=== PATIENT | male | born 1950 | race Caucasian/White ===

== ENCOUNTER → 2023-03-22 15:03 | Outpatient (BNVA) | payer MEDICARE, MEDICAID, SELFPAY | PROVIDERS: PCP Internal Medicine; Visit Provider Psychiatry & Neurology Neurology | DX: G47.10 Hypersomnia, unspecified (principal); R06.83 Snoring; Z86.73 Personal history of transient ischemic attack (TIA), and cerebral infarction without residual deficits | CPT/HCPCS: 99202 ==

== ENCOUNTER → 2023-04-17 09:00 | Outpatient (REF) | payer MEDICARE, MEDICAID, SELFPAY | LOC: HO.SL 09:00 | PROVIDERS: PCP Internal Medicine; Visit Provider Psychiatry & Neurology Neurology | DX: G47.33 Obstructive sleep apnea (adult) (pediatric) (principal); G47.10 Hypersomnia, unspecified; R06.83 Snoring | CPT/HCPCS: 95806 ==

== ENCOUNTER → 2023-06-22 20:30 | Outpatient (REF) | payer MEDICARE, MEDICAID, SELFPAY | LOC: HO.SL 20:30 | PROVIDERS: PCP Internal Medicine; Visit Provider Nurse Practitioner Family | DX: G47.33 Obstructive sleep apnea (adult) (pediatric) (principal) | CPT/HCPCS: 95811 ==

== ENCOUNTER → 2023-06-23 05:44 | Outpatient (BNV) | payer MEDICARE, MEDICAID, SELFPAY | PROVIDERS: PCP Internal Medicine; Visit Provider Psychiatry & Neurology Neurology | DX: G47.33 Obstructive sleep apnea (adult) (pediatric) (principal) | CPT/HCPCS: 95811 ==

== ENCOUNTER 2023-07-09 09:10 | Outpatient (AMB) | payer MEDICARE, MEDICAID, SELFPAY ==
--- NOTE | 2023-07-09 09:11 | A.OFFVIS_ITS ---
Intake Vital Signs 07/09/23 09:23 Weight 175 lb 4 oz BP 130/62 Blood Pressure Location Lt brachial Pulse 66 Pulse Oximetry (%) 96 Oxygen Delivery Method Room Air Intake Visit Reasons: 3 mo f/u-recent LFT subacute thalamic stroke -Conf Allergies No Known Allergies Allergy (Verified 07/09/23 09:14) Medication List - Last Reconciled 07/09/23 by Dante Tan CNP amlodipine mg PO atorvastatin mg PO empagliflozin (Jardiance) 10 mg PO DAILY ezetimibe 10 mg PO DAILY glipizide mg PO insulin degludec (Tresiba FlexTouch U-100 insulin) units subcut magnesium oxide 400 mg PO DAILY metformin mg PO omeprazole mg PO sildenafil 100 mg PO DAILY PRN PFSH Medical History (Updated 05/09/23 @ 13:54 by Dante Tan CNP) Arterial ischemic stroke, vertebrobasilar, thalamic, remote, resolved Diabetes Erectile dysfunction GERD (gastroesophageal reflux disease) HTN (hypertension) Hypersomnia Pancreatitis Snoring Surgical History Hx of colonoscopy Family History Mother Myocardial infarction Father Diabetes Social History (Updated 07/09/23 @ 09:23 by Jia Blackman CMA) Alcohol intake: never Patient Tobacco Use Status: Never used Tobacco Physical Exam Vital Signs: Last Vital Signs Pulse 66 07/09/23 09:23 BP 130/62 07/09/23 09:23 Pulse Ox 96 07/09/23 09:23 Oxygen Delivery Method Room Air 07/09/23 09:23 Coding Level of Care Code Est Pt Level 3 (48698) Diagnoses
--- NOTE | 2023-07-09 09:11 | A.OFFVIS_ITS ---
Intake Vital Signs 07/09/23 09:23 Weight 175 lb 4 oz BP 130/62 Blood Pressure Location Lt brachial Pulse 66 Pulse Oximetry (%) 96 Oxygen Delivery Method Room Air Intake Visit Reasons: 3 mo f/u-recent LFT subacute thalamic stroke -Conf Intake Note: Follow up, needs interpenter Food Service Representative Required: Yes Food Service Representative Name: Margaret Prieto Allergies No Known Allergies Allergy (Verified 07/09/23 09:14) Medication List - Last Reconciled 07/09/23 by Dante Tan CNP amlodipine mg PO atorvastatin mg PO empagliflozin (Jardiance) 10 mg PO DAILY ezetimibe 10 mg PO DAILY glipizide mg PO insulin degludec (Tresiba FlexTouch U-100 insulin) units subcut magnesium oxide 400 mg PO DAILY metformin mg PO omeprazole mg PO sildenafil 100 mg PO DAILY PRN HPI HPI Comments History of Present Illness Details 72 y/o male patient with hx of stroke presents for follow up of sleep study. The home sleep study result was significant for severe degree of sleep apnea. The AHI was 30/hr and oxygen yvonne was 79%. Pt underwent titration study. The breathing and oxygenation stabilized on CPAP at 9cmH2O. Pt continues to endorse frequent gasping arousals, and non refreshing sleep. He is on aspirin 81mg qd and atorvostatin 80mg qd. [facility] Medical History (Updated 05/09/23 @ 13:54 by Dante Tan CNP) Arterial ischemic stroke, vertebrobasilar, thalamic, remote, resolved Diabetes Erectile dysfunction GERD (gastroesophageal reflux disease) HTN (hypertension) Hypersomnia Pancreatitis Snoring Surgical History Hx of colonoscopy Family History Mother Myocardial infarction Father Diabetes Social History (Updated 07/09/23 @ 09:23 by Jia Blackman CMA) Alcohol intake: never Patient Tobacco Use Status: Never used Tobacco Review of Systems Const All systems reviewed & are unremarkable except as noted in HPI and below Physical Exam Vital Signs: Last Vital Signs Pulse 66 07/09/23 09:23 BP 130/62 07/09/23 09:23 Pulse Ox 96 07/09/23 09:23 Oxygen Delivery Method Room Air 07/09/23 09:23 Const General: cooperative, healthy appearing, comfortable and no acute distress Nutritional Appearance: average body habitus Orientation/consciousness: patient oriented x3 HEENT Head: Yes normal to inspection Eyes Pupils: Equal, round and reactive pupils present Neuro Other: hearing loss, uses hearing aid on right. General: patient oriented x3, gait normal, tone normal, moves all extremities and no focal motor deficits Cranial nerves: Yes Facial sensation intact/muscles of mastication intact, Yes Equal, round and reactive pupils present, Yes Bilaterally intact EOM present, Yes Nystagmus not present, Yes Normal facial strength present, Yes Midline tongue present and Yes Symmetric palate elevation present Cognition (Neuro): normal cognition Gait exam (Neuro): Other gait observations present (mild off balance) Motor exam (neuro): 5/5 motor strength present throughout and Normal motor muscle tone present throughout Deep tendon reflexes (DTR's): Right triceps reflex intensity grade: 1+, Left triceps reflex intensity grade: 1+, Rt Biceps (C5, C6): 1+, Left biceps reflex intensity grade: 1+, Right brachioradialis reflex intensity grade: 1+, Left brachioradialis reflex intensity grade: 1+, Right patellar reflex intensity grade: 1+, Left patellar reflex intensity grade: 1+ and Right ankle reflex intensity grade: 1+ Coordination: [id number] test normal Psych Appearance: grossly normal Mental Status: mental status grossly normal Affect: normal affect Attitude: cooperative Assessment & Plan Assessment & Plan (1) Arterial ischemic stroke, vertebrobasilar, thalamic, remote, resolved: Code(s): Z86.73 - Personal history of transient ischemic attack (TIA), and cerebral infarction without residual deficits (2) ANTHONY (obstructive sleep apnea): Comment: Severe degree of sleep apnea. The AHI was 30/hr and oxygen yvonne was 79% Code(s): G47.33 - Obstructive sleep apnea (adult) (pediatric) Plan Continue Aspirin 81mg qd and Atorvastatin 80mg qd. Start CPAP at 9cmH2O to treat sleep apnea. Stressed compliance, use CPAP nightly and more than 4 hours. Coding Level of Care Code Est Pt Level 3 (44106) Diagnoses Arterial ischemic stroke, vertebrobasilar, thalamic, remote, resolved Z86.73 ANTHONY (obstructive sleep apnea) G47.33
[2023-07-09 09:23] VITALS: BP 130/62; PULSE 66; O2SAT 96
== END 2023-07-09 09:47 | disposition home or self-care (01) ==
PROVIDERS: Visit Provider Nurse Practitioner Family
DX: G47.33 Obstructive sleep apnea (adult) (pediatric) (principal); Z86.73 Personal history of transient ischemic attack (TIA), and cerebral infarction without residual deficits
CPT/HCPCS: 99213

== ENCOUNTER → 2023-07-09 09:10 | Outpatient (BNVA) | payer MEDICARE, MEDICAID, SELFPAY | PROVIDERS: Visit Provider Nurse Practitioner Family | DX: G47.33 Obstructive sleep apnea (adult) (pediatric) (principal); G47.10 Hypersomnia, unspecified; R06.83 Snoring; Z86.73 Personal history of transient ischemic attack (TIA), and cerebral infarction without residual deficits | CPT/HCPCS: 99212 ==

== ENCOUNTER 2023-11-05 08:54 | Outpatient (AMB) | payer MEDICARE, MEDICAID, SELFPAY ==
--- NOTE | 2023-11-05 09:00 | MHC.OFFVIS ---
Intake Vital Signs 11/05/23 09:02 Height 5 ft 9 in Weight 180 lb BMI 26.6 BP 150/70 H Blood Pressure Location Rt brachial Position Sitting Intake Visit Reasons: 4 mo f/u-Subacute Thalamic Stroke-Confirmed Intake Note: Patient presents for 4 month follow up. Allergies No Known Allergies Allergy (Verified 11/05/23 09:04) HPI HPI Comments History of Present Illness Details 73 y/o male patient with hx of stroke presents for follow up of sleep study. The home sleep study result was significant for severe degree of sleep apnea. The AHI was 30/hr and oxygen yvonne was 79%. Pt underwent titration study. The breathing and oxygenation stabilized on CPAP at 9cmH2O. CPAP at 9cmH2O ordered in June, however patient did not received his CPAP. He statest that he did not get phone call from [facility]. Pt continues to endorse frequent gasping arousals, and non refreshing sleep. He is on aspirin 81mg qd and atorvostatin 80mg qd. [facility] Medical History (Updated 05/09/23 @ 13:54 by Dante Tan CNP) Hypersomnia Snoring Erectile dysfunction Pancreatitis GERD (gastroesophageal reflux disease) HTN (hypertension) Diabetes Arterial ischemic stroke, vertebrobasilar, thalamic, remote, resolved Surgical History Hx of colonoscopy Family History Mother Myocardial infarction Father Diabetes Social History Alcohol intake: never Patient Tobacco Use Status: Never used Tobacco Review of Systems Const All systems reviewed & are unremarkable except as noted in HPI and below Physical Exam Vital Signs: Last Vital Signs BP 150/70 H 11/05/23 09:02 BMI result Body Mass Index 26.6 Const General: cooperative, healthy appearing, comfortable and no acute distress Nutritional Appearance: average body habitus Orientation/consciousness: patient oriented x3 HEENT Head: Yes normal to inspection Eyes Pupils: Equal, round and reactive pupils present Neuro Other: hearing loss, uses hearing aid on right. General: patient oriented x3, gait normal, tone normal, moves all extremities and no focal motor deficits Cranial nerves: Yes Facial sensation intact/muscles of mastication intact, Yes Equal, round and reactive pupils present, Yes Bilaterally intact EOM present, Yes Nystagmus not present, Yes Normal facial strength present, Yes Midline tongue present and Yes Symmetric palate elevation present Cognition (Neuro): normal cognition Gait exam (Neuro): Other gait observations present (mild off balance) Motor exam (neuro): 5/5 motor strength present throughout and Normal motor muscle tone present throughout Deep tendon reflexes (DTR's): Right triceps reflex intensity grade: 1+, Left triceps reflex intensity grade: 1+, Rt Biceps (C5, C6): 1+, Left biceps reflex intensity grade: 1+, Right brachioradialis reflex intensity grade: 1+, Left brachioradialis reflex intensity grade: 1+, Right patellar reflex intensity grade: 1+, Left patellar reflex intensity grade: 1+ and Right ankle reflex intensity grade: 1+ Coordination: [id number] test normal Psych Appearance: grossly normal Mental Status: mental status grossly normal Affect: normal affect Attitude: cooperative Assessment & Plan Assessment & Plan (1) ANTHONY (obstructive sleep apnea): Comment: Severe degree of sleep apnea. The AHI was 30/hr and oxygen yvonne was 79% Code(s): G47.33 - Obstructive sleep apnea (adult) (pediatric) (2) Hypersomnia: Code(s): G47.10 - Hypersomnia, unspecified Plan Resent the CPAP prescription to [facility]. [facility] information given to patient. Start CPAP at 9cmH2O. Stressed compliance and therapy response. Coding Level of Care Code Est Pt Level 3 (08953) Diagnoses ANTHONY (obstructive sleep apnea) G47.33 Hypersomnia G47.10
[2023-11-05 09:02] VITALS: BP 150/70; BMI 26.6
== END 2023-11-05 09:20 | disposition home or self-care (01) ==
PROVIDERS: PCP Internal Medicine; Visit Provider Nurse Practitioner Family
DX: G47.33 Obstructive sleep apnea (adult) (pediatric) (principal); G47.10 Hypersomnia, unspecified
CPT/HCPCS: 99213

== ENCOUNTER → 2023-11-05 08:54 | Outpatient (BNVA) | payer MEDICARE, MEDICAID, SELFPAY | PROVIDERS: PCP Internal Medicine; Visit Provider Nurse Practitioner Family | DX: G47.33 Obstructive sleep apnea (adult) (pediatric) (principal); G47.10 Hypersomnia, unspecified | CPT/HCPCS: 99212 ==

== ENCOUNTER 2024-07-17 13:28 | Outpatient (AMB) | payer MEDICARE, MEDICAID, SELFPAY ==
--- NOTE | 2024-07-17 13:50 | A.OFFVIS_ITS ---
Vital Signs 07/17/24 13:51 Height 5 ft 9 in Weight 181 lb 6 oz BMI 26.8 BP 138/62 Blood Pressure Location Rt brachial Position Sitting Respiration 16 Pulse 85 Pulse Source Pulse Oximeter Pulse Oximetry (%) 96 Oxygen Delivery Method Room Air Intake Visit Reasons: 4 mo f/u - Subacute Thalamic Stroke Intake Note: Pt presents to the office for a 4 month follow up for subacaute thalamic stroke and ANTHONY. Ict Help Desk Technician Required: No Allergies No Known Allergies Allergy (Verified 07/17/24 13:51) HPI Comments Details: 73 y/o male patient with hx of stroke presents for follow up of sleep study. The home sleep study result was significant for severe degree of sleep apnea. The AHI was 30/hr and oxygen yvonne was 79%. Pt underwent titration study. The breathing and oxygenation stabilized on CPAP at 9cmH2O. He is unable to use - says he had dryness in his nose His compliance 01/2024-03/2024 57% Pt continues to endorse frequent gasping arousals, and non refreshing sleep. He is on aspirin 81mg qd and atorvostatin 80mg qd. [facility] Medical History Hypersomnia Snoring Erectile dysfunction Pancreatitis GERD (gastroesophageal reflux disease) HTN (hypertension) Diabetes Arterial ischemic stroke, vertebrobasilar, thalamic, remote, resolved Surgical History Hx of colonoscopy Family History Mother Myocardial infarction Father Diabetes Social History Alcohol intake: never Patient Tobacco Use Status: Never used Tobacco Physical Exam Vital Signs: Last Vital Signs Pulse 85 07/17/24 13:51 Resp 16 07/17/24 13:51 BP 138/62 07/17/24 13:51 Pulse Ox 96 07/17/24 13:51 Oxygen Delivery Method Room Air 07/17/24 13:51 BMI result Body Mass Index 26.8 Const General: cooperative, healthy appearing, comfortable and no acute distress Nutritional Appearance: average body habitus Orientation/consciousness: patient oriented x3 HEENT Head: Yes normal to inspection Eyes Pupils: Equal, round and reactive pupils present Neuro Other: hearing loss, uses hearing aid on right. General: patient oriented x3, gait normal, tone normal, moves all extremities and no focal motor deficits Cranial nerves: Yes Facial sensation intact/muscles of mastication intact, Yes Equal, round and reactive pupils present, Yes Bilaterally intact EOM present, Yes Nystagmus not present, Yes Normal facial strength present, Yes Midline tongue present and Yes Symmetric palate elevation present Cognition (Neuro): normal cognition Gait exam (Neuro): Other gait observations present (mild off balance) Motor exam (neuro): 5/5 motor strength present throughout and Normal motor muscle tone present throughout Coordination: [id number] test normal Psych Appearance: grossly normal Mental Status: mental status grossly normal Affect: normal affect Attitude: cooperative Assessment & Plan Assessment & Plan (1) ANTHONY (obstructive sleep apnea): Comment: Severe degree of sleep apnea. The AHI was 30/hr and oxygen yvonne was 79% Code(s): G47.33 - Obstructive sleep apnea (adult) (pediatric) Category: Medical (2) Hypersomnia: Code(s): G47.10 - Hypersomnia, unspecified Category: Medical Plan [facility] information given to patient to call for amks fitting CPAP at 9cmH2O. Stressed compliance. Coding Level of Care Code Est Pt Level 4 (55342) Diagnoses ANTHONY (obstructive sleep apnea) G47.33 Hypersomnia G47.10
[2024-07-17 13:51] VITALS: BP 138/62; PULSE 85; RESP 16; O2SAT 96; BMI 26.8
== END 2024-07-17 14:13 | disposition home or self-care (01) ==
PROVIDERS: Absent Provider Psychiatry & Neurology Neurology; PCP Internal Medicine; Visit Provider Psychiatry & Neurology Neurology
DX: G47.33 Obstructive sleep apnea (adult) (pediatric) (principal); G47.10 Hypersomnia, unspecified
CPT/HCPCS: 99214

== ENCOUNTER → 2024-07-17 13:28 | Outpatient (BNVA) | payer MEDICARE, MEDICAID, SELFPAY | PROVIDERS: Absent Provider Psychiatry & Neurology Neurology; PCP Internal Medicine; Visit Provider Psychiatry & Neurology Neurology | DX: G47.33 Obstructive sleep apnea (adult) (pediatric) (principal); G47.10 Hypersomnia, unspecified | CPT/HCPCS: 99212 ==

== ENCOUNTER 2024-08-04 11:57 | Outpatient (AMB) | payer MEDICARE, MEDICAID, SELFPAY ==
--- NOTE | 2024-08-04 12:06 | A.OFFVIS_ITS ---
Vital Signs 08/04/24 12:07 Height 5 ft 9 in Weight 184 lb BMI 27.2 BP 130/70 Blood Pressure Location Rt brachial Position Sitting Respiration 16 Pulse 77 Pulse Source Pulse Oximeter Pulse Oximetry (%) 94 Oxygen Delivery Method Room Air Intake Visit Reasons: 4m f/u-Sub Thalamic Stroke(sleep Clinic) [place] per MD Intake Note: Pt presents to the office for 1 month follow up for subacute thalamic stroke and ANTHONY. Ballet Dancer Required: No Allergies No Known Allergies Allergy (Verified 08/04/24 12:07) HPI Comments Details: 73 y/o male patient with hx of stroke presents for follow up of sleep study. A certified medical imaging specialist Yessenia Dejesus helped during this evaluation The home sleep study result was significant for severe degree of sleep apnea. The AHI was 30/hr and oxygen yvonne was 79%. Pt underwent titration study. The breathing and oxygenation stabilized on CPAP at 9cmH2O. He is unable to use - says he had dryness in his nose His compliance 01/2024-03/2024 57% He is still not compliant due to discomfort with mask. Pt continues to endorse frequent gasping arousals, and non refreshing sleep. He is on aspirin 81mg qd and atorvostatin 80mg qd. [facility] Medical History Hypersomnia Snoring Erectile dysfunction Pancreatitis GERD (gastroesophageal reflux disease) HTN (hypertension) Diabetes Arterial ischemic stroke, vertebrobasilar, thalamic, remote, resolved Surgical History Hx of colonoscopy Family History Mother Myocardial infarction Father Diabetes Social History Alcohol intake: never Patient Tobacco Use Status: Never used Tobacco Physical Exam Vital Signs: Last Vital Signs Pulse 77 08/04/24 12:07 Resp 16 08/04/24 12:07 BP 130/70 08/04/24 12:07 Pulse Ox 94 08/04/24 12:07 Oxygen Delivery Method Room Air 08/04/24 12:07 BMI result Body Mass Index 27.2 Const General: cooperative, healthy appearing, comfortable and no acute distress Nutritional Appearance: average body habitus Orientation/consciousness: patient oriented x3 HEENT Head: Yes normal to inspection Eyes Pupils: Equal, round and reactive pupils present Neuro Other: hearing loss, uses hearing aid on right. General: patient oriented x3, gait normal, tone normal, moves all extremities and no focal motor deficits Cranial nerves: Yes Facial sensation intact/muscles of mastication intact, Yes Equal, round and reactive pupils present, Yes Bilaterally intact EOM present, Yes Nystagmus not present, Yes Normal facial strength present, Yes Midline tongue present and Yes Symmetric palate elevation present Cognition (Neuro): normal cognition Gait exam (Neuro): Other gait observations present (mild off balance) Motor exam (neuro): 5/5 motor strength present throughout and Normal motor muscle tone present throughout Coordination: [id number] test normal Assessment & Plan Assessment & Plan (1) ANTHONY (obstructive sleep apnea): Comment: Severe degree of sleep apnea. The AHI was 30/hr and oxygen yvonne was 79% Code(s): G47.33 - Obstructive sleep apnea (adult) (pediatric) Category: Medical (2) Hypersomnia: Code(s): G47.10 - Hypersomnia, unspecified Category: Medical Plan Refer to ENT for DISE eval for Inspire . CPAP at 9cmH2O. Stressed compliance. Orders: Referrals Ear/Nose/Throat Referral G47.33 - Obstructive sleep apnea (adult) (pediatric) Coding Level of Care Code Est Pt Level 4 (88336) Diagnoses ANTHONY (obstructive sleep apnea) G47.33 Hypersomnia G47.10
[2024-08-04 12:07] VITALS: BP 130/70; PULSE 77; RESP 16; O2SAT 94; BMI 27.2
== END 2024-08-04 12:52 | disposition home or self-care (01) ==
PROVIDERS: PCP Internal Medicine; Visit Provider Psychiatry & Neurology Neurology
DX: G47.33 Obstructive sleep apnea (adult) (pediatric) (principal); G47.10 Hypersomnia, unspecified
CPT/HCPCS: 99214

== ENCOUNTER → 2024-08-04 11:57 | Outpatient (BNVA) | payer MEDICARE, MEDICAID, SELFPAY | PROVIDERS: PCP Internal Medicine; Visit Provider Psychiatry & Neurology Neurology | DX: G47.33 Obstructive sleep apnea (adult) (pediatric) (principal); G47.10 Hypersomnia, unspecified | CPT/HCPCS: 99212 ==

== ENCOUNTER 2025-03-04 08:38 | Outpatient (AMB) | payer MEDICARE, MEDICAID, SELFPAY ==
--- NOTE | 2025-03-04 08:48 | MHC.OFFVIS ---
Vital Signs 03/04/25 08:49 Height 5 ft 9 in Weight 189 lb BMI 27.9 BP 128/70 Blood Pressure Location Rt brachial Position Sitting Pulse 79 Pulse Source Pulse Oximeter Pulse Oximetry (%) 97 Oxygen Delivery Method Room Air Intake Visit Reasons: 4m f/u-Sub Thalamic Stroke(sleep Clinic) [place] per MD Intake Note: patient presents for follow up ANTHONY sleep study 08/17/24 scanned. ENT has not called him to book as of yet Allergies No Known Allergies Allergy (Verified 03/04/25 08:50) Medication List - Last Reconciled 03/04/25 by Shante Rodriguez MD amlodipine mg PO atorvastatin mg PO cetirizine (Zyrtec) 10 mg PO DAILY empagliflozin (Jardiance) 10 mg PO DAILY ezetimibe 10 mg PO DAILY glipizide mg PO insulin degludec (Tresiba FlexTouch U-100 insulin) units subcut magnesium oxide 400 mg PO DAILY metformin mg PO omeprazole mg PO sildenafil 100 mg PO DAILY PRN HPI Comments Details: 73 y/o male patient with hx of stroke presents for follow up. A certified medical orderly Becka Castaneda helped during this evaluation The home sleep study result was significant for severe degree of sleep apnea. The AHI was 30/hr and oxygen yvonne was 79%. Pt underwent titration study. The breathing and oxygenation stabilized on CPAP at 9cmH2O. He is unable to use - says he had dryness in his nose and i referred him to ENT for DISE evaluation He is still not compliant due to discomfort with mask. Pt continues to endorse frequent gasping arousals, and non refreshing sleep. He is on aspirin 81mg qd and atorvostatin 80mg qd. [facility] Medical History Hypersomnia Snoring Erectile dysfunction Pancreatitis GERD (gastroesophageal reflux disease) HTN (hypertension) Diabetes Arterial ischemic stroke, vertebrobasilar, thalamic, remote, resolved Surgical History Hx of colonoscopy Family History Mother Myocardial infarction Father Diabetes Social History Alcohol intake: never Patient Tobacco Use Status: Never used Tobacco Physical Exam Vital Signs: Last Vital Signs Pulse 79 03/04/25 08:49 BP 128/70 03/04/25 08:49 Pulse Ox 97 03/04/25 08:49 Oxygen Delivery Method Room Air 03/04/25 08:49 BMI result Body Mass Index 27.9 Const General: cooperative, healthy appearing, comfortable and no acute distress Nutritional Appearance: average body habitus Orientation/consciousness: patient oriented x3 HEENT Head: Yes normal to inspection Eyes Pupils: Equal, round and reactive pupils present Neuro Other: hearing loss, uses hearing aid on right. General: patient oriented x3, gait normal, tone normal, moves all extremities and no focal motor deficits Cranial nerves: Yes Facial sensation intact/muscles of mastication intact, Yes Equal, round and reactive pupils present, Yes Bilaterally intact EOM present, Yes Nystagmus not present, Yes Normal facial strength present, Yes Midline tongue present and Yes Symmetric palate elevation present Cognition (Neuro): normal cognition Gait exam (Neuro): Other gait observations present (mild off balance) Motor exam (neuro): 5/5 motor strength present throughout and Normal motor muscle tone present throughout Coordination: [id number] test normal Assessment & Plan Assessment & Plan (1) ANTHONY (obstructive sleep apnea): Comment: Severe degree of sleep apnea. The AHI was 30/hr and oxygen yvonne was 79% Code(s): G47.33 - Obstructive sleep apnea (adult) (pediatric) Category: Medical (2) Hypersomnia: Code(s): G47.10 - Hypersomnia, unspecified Category: Medical Plan will check with ENT for DISE eval for Inspire . start zyrtec or CPAP at 9cmH2O. Stressed compliance. Orders: Orders RT PSG in-lab sleep study Today G47.33 - Obstructive sleep apnea (adult) (pediatric) Medications: New cetirizine (Zyrtec) 10 mg PO DAILY 90 tabs 6RF Coding Level of Care Code Est Pt Level 4 (18522) Complex EM visit Add On G2211 Diagnoses ANTHONY (obstructive sleep apnea) G47.33 Hypersomnia G47.10
[2025-03-04 08:49] VITALS: BP 128/70; PULSE 79; O2SAT 97; BMI 27.9
--- OUTSIDE RECORDS SUMMARY | 2025-03-04 08:59 | XMS_ITS | Clinical Summary ---
Author Organization 175 [facility] Address [address] [place] [address] Phone Care Team Providers Care Medical Education Coordinator Name Role Phone Sadie Fontanez MD Primary Care Provider [phone] Allergies Active Allergy Reactions Criticality Noted Date Comments Dulaglutide 05/30/2019 Pancreatitis Medications pen needle, diabetic (BD Ultra-Fine Short Pen Needle) 31 gauge x 5/16 needle USE 1 PEN NEEDLE 4 TIMES DAILY 4 Active blood-glucose meter kit Use to test BS 3 times daily. Dx Code E11.59 3 Active blood-glucose meter,continuou s (Dexcom G7 Harness Puller) misc 1 Device by Does not apply route See Admin Instructions. Use daily with dexcom g 7 sensors 4 Active blood-glucose sensor (Dexcom G7 Sensor) device 1 Device by Does not apply route See Admin Instructions. Change sensor every 10 days 4 Active ONETOUCH ULTRASOFT LANCETS MISC Use to check BS 4 times a day 2 Active OneTouch Ultra Test test strip USE 1 STRIP TO CHECK GLUCOSE THREE TIMES DAILY 4 Active albuterol HFA (PROAIR HFA ; PROVENTIL HFA ; VENTOLIN HFA) 90 mcg/actuation inhaler Inhale 2 Puffs into the lungs every 4 hours as needed for Cough, Wheezing or Shortness of Breath. 3 Active amLODIPine (NORVASC) 5 mg tablet Take 1 Tablet by mouth daily. 4 Active aspirin 81 mg EC tablet Take 1 Tablet by mouth daily. 4 Active atorvastatin (LIPITOR) 80 mg tablet Take 1 Tablet by mouth daily. 4 Active diclofenac (VOLTAREN) 1 % topical gel Apply 1 Dose topically 2 times daily. 4 Active ezetimibe (ZETIA) 10 mg tablet Take 1 Tablet by mouth daily. 4 Active insulin aspart (NovoLOG Flexpen U-100 Insulin) 100 unit/mL (3 mL) injection pen Inject 3 times a day with meals per scale: 100-149: 5 units; 150-200: 6 units; 201-250: 7units; 251-300: 8 units; 301-350: 9 units; 351-400: 10 units 4 Active insulin glargine (Lantus Solostar U-100 Insulin) 100 unit/mL (3 mL) injection pen Inject 42 Units into the skin 2 times daily (with meals). 4 Active metFORMIN (GLUCOPHAGE) 1,000 mg tablet Take 1 Tablet by mouth 2 times daily (with meals). 4 Active magnesium oxide (MAG-OX) 400 mg magnesium tablet Take 1 tablet (400 mg total) by mouth 2 (two) times a day. 180 tablet 2 4 Active omeprazole (PriLOSEC) [address] capsule Take 1 capsule by mouth once daily 90 capsule 1 5 Active sildenafiL (VIAGRA) 100 mg tablet TAKE 1 TABLET BY MOUTH NEEDED FOR ERECTILE DYSFUNCTION 10 tablet 5 Active Active Problems Problem Noted Date Diagnosed Date Abdominal pain 09/16/2024 Change in bowel habits 09/16/2024 Encounter for diagnostic col onoscopy due to change in bowel habits 09/16/2024 Thalamic stroke ([facility] V24, [facility] V28) 04/21 Overview (09/16/2024): Subacute left Ataxia 04/21/2022 Dysuria 04/21/2022 Arterial ischemic stroke, ve rtebrobasilar, thalamic, acute, left ([facility] V24, [facility] V28) 03/06/2022 Pinched nerve in shoulder, left 07/26/2021 Foot pain, left 10/12/2020 Leg pain, diffuse, right 10/12/2020 Hyperlipidemia 11/06/2017 Overview (09/16/2024): Last Assessment & Plan: Last lipid panel 07/10 total cholesterol 233, HDL 38, LDL 125, triglycerides 352. Previous LDL was 74. He states he is taking his medications and does not miss any doses. He does admit to eating large amounts, we spent a lot of time on diet and lowering his blood sugars and also lowering his cholesterol. He also only drinks about 2 glasses of water a day so we encourage hydration. He is going to recheck his lipid panel within the next week or 2 and have this done fasting as he believes the last one was not. Continue statin. Primary hypertension 11/06/2017 Overview (09/16/2024): Last Assessment & Plan: Improved, continue CRYSTAL, CCB Allergic rhinitis 04/05/2017 GERD (gastroesophageal reflux disease) 6 Erectile dysfunction 07/26/2016 Fatty infiltration of liver 07/26/2016 Vitamin D deficiency 07/26/2016 Type 2 diabetes mellitus wit h vascular disease ([facility] V24, [facility] V28) 03/10/2016 Encounters Date Type Department Care Team Description 02/05/2025 12:45 PM EDT Office Visit Internal Medicine [address] [phone] Sadie Fontanez MD Nipple pain (Primary Dx); Type 2 diabetes mellitus with vascular disease ([facility] V24, [facility] V28); Primary hypertension 01/30/2025 Telephone Internal Medicine [address] [phone] Sadie Fontanez MD 01/23/2025 Telephone Endocrinology [address] [phone] Airam Dejesus PA from Last 3 Months Immunizations Name Administration Dates Next Due Moderna SARS-CoV-2 COVID-19, mRNA, LNP-S, preservative free 04/05/2021,03/08/2021 Pneumococcal conjugate 13 va lent (Prevnar 13, PCV13) 2mo and older 10/25/2016 Pneumococcal polysaccharide 23 valent (Pneumovax 23) 2yo and older 02/09/2009 Tetanus Toxoid, Unspecified 07/26/2007 Surgical History Surgery Date Site/Laterality Comments COLONOSCOPY PROCEDURE: HISTORICAL COLONOSCOPY; COMMENT: Performed at age 52 along with an EGD ESOPHAGOGASTRODUODENOSCOPY PROCEDURE: TX EGD TRANSORAL BIOPSY SINGLE/MULTIPLE; COMMENT: Performed with colonoscopy at age 52 Medical History Medical History Date Comments Allergic rhinitis 04/05/2017 DX:Allergic rh initis Erectile dysfunction 07/26/2016 DX:Erectile dysfunction Fatty infiltration of liver 07/26/2016 DX:F atty infiltration of liver GERD (gastroesophageal reflu x disease) 09/28/2016 DX:GERD (gastroesophageal re flux disease) HTN (hypertension) 11/06/2017 DX:HTN (hyper tension) Hyperlipidemia 11/06/2017 DX:Hyperlipidemi a Type 2 diabetes mellitus wit h vascular disease (CMS/HCC V24, CMS/HCC V28) 03/10/2016 DX:Type 2 diabetes mellitus with vascular disease (HCC) Vitamin D deficiency 07/26/2016 DX:Vitamin D deficiency Abdominal pain DX:Abdominal gordon n Change in bowel habits DX:Change in bowel habits Encounter for diagnostic col onoscopy due to change in bowel habits DX:Encounter for diagnos tic colonoscopy due to change in bowel habits Family history of cardiovasc ular disease DX:Family history of cardiov ascular disease Family History Medical History Relation Name Comments Heart attack Mother Relation Name Status Comments Father Mother Social History Tobacco Use Types Packs/Day Years Used Date Smoking Tobacco: Never Smokeless Tobacco: Never Tobacco Cessation:Counseling Given: Not Answered Alcohol Use Standard Drinks/Week Comments No 0 (1 standard drink = 0.6 oz pur e alcohol) Sex and Gender Information Value Date Recorded Sex Assigned at Not on file Legal Sex Male 4:37 AM EST Gender Identity Not on file Sexual Orientation Not on file Obstetrics History Last Filed Vital Signs Vital Sign Reading Time Taken Comments Blood Pressure 162/70 02/05/2025 12:45 PM EDT Pulse 77 02/05/2025 12:45 PM EDT Temperature 36.2 ??C (97.1 ??F) 02/05/2025 12:45 PM E DT Respiratory Rate - - Oxygen Saturation 99% 02/05/2025 12:45 PM EDT Inhaled Oxygen Concentration - - Weight 81.2 kg (179 lb) 02/05/2025 12:45 PM EDT Height 175.3 cm (5' 9 ) 10/27/2024 3:18 PM EST Body Mass Index 26.43 10/27/2024 3:18 PM EST Plan of Treatment Upcoming Encounters Date Type Department Care Team (Late st Contact Info) Description 03/12/2025 12:45 PM EDT Office Visit Internal Medicine - [place] [address] [facility] [address] [place] [address] Sadie Fontanez MD [address] [facility] [address] [place] [address] Health Maintenance Due Date Last Done Comments Zoster Vaccines (1 of 2) 2002 RSV Immunization Adult Patients (1 - Risk 60-74 years 1-dose series) 2012 Pneumococcal Vaccine: 50+ Years (3 of 3 - PCV20 or PCV21) 10/25/2021 10/25/2016, 02/09/2009 Hepatitis C Screening 10/28/2022 Social Influencers of Health Screening 10/28/2022 DTaP,Tdap,and Td Vaccines (2 - Td or Tdap) 03/09/2024 03/09/2014 COVID-19 Vaccine (3 - season) 2024 04/05/2021, 03/08/2021 Depression Screening 02/04/2025 02/05/2024 Falls Risk Assessment 02/04/2025 02/05/2024 Medicare Annual Wellness Visit 02/04/2025 02/05/2024 Diabetes: Annual Retina Eye Exam 03/10/2025 03/10/2024 Diabetes: Annual Foot Exam 03/18/2025 03/18/2024 Diabetes: Blood Sugar Control Test (HGBA1C) 05/11/2025 2024, 08/04/2024, 08/04/2024, Additional history exists Influenza Vaccine (Season Ended) 2025 Diabetes: Annual Urine Albumin-Creatinine Ratio (uACR) 2025 2024, 04/29/2024 Diabetes: Annual GFR (Glomerular Filtration Rate) 2025 2024, 04/29/2024 Hypertension/CHF/CAD Annual BMP Blood Test 2025 2024, 04/29/2024 Cholesterol Screening (Lipid Panel) 04/29/2029 04/29/2024, 04/29/2024 Colorectal Cancer Screening: Colonoscopy 11/18/2029 11/18/2019 HIB Vaccines Aged Out No longer eligi ble based on patient's age to complete this topic HPV Vaccines Aged Out No longer eligi ble based on patient's age to complete this topic Hepatitis A Vaccines Aged Out No long er eligible based on patient's age to complete this topic Hepatitis B Vaccines Aged Out No long er eligible based on patient's age to complete this topic IPV Vaccines Aged Out No longer eligi ble based on patient's age to complete this topic MMR Vaccines Aged Out No longer eligi ble based on patient's age to complete this topic Meningococcal ACWY Vaccine Aged Out N o longer eligible based on patient's age to complete this topic Meningococcal B Vaccine Aged Out No l onger eligible based on patient's age to complete this topic RSV Immunization Patients Under 20 months Aged Out No longer eligible based on patient's age to complete this topic Varicella Vaccines Aged Out No longer eligible based on patient's age to complete this topic Procedures Procedure Name Priority Date/Time Associated Diagnosis Comments MICROALBUMIN CREATININE URINE RATIO Routine 2024 12:47 PM EST Type 2 diabetes mellitus with vascular disease (CMS/HCC V24, CMS/HCC V28) Primary hypertension Mixed hyperlipidemia Screening for malignant neoplasm of prostate COMPREHENSIVE METABOLIC PANEL Routine 2024 12:47 PM EST Type 2 diabetes mellitus with vascular disease (CMS/HCC V24, CMS/HCC V28) Primary hypertension Mixed hyperlipidemia HEMOGLOBIN A1C Routine 2024 12:47 PM EST Type 2 diabetes mellitus with vascular disease (CMS/HCC V24, CMS/HCC V28) Primary hypertension Mixed hyperlipidemia LIPID PANEL Routine 04/29/2024 DIABETES FOOT EXAM Routine 03/18/2024 DIABETES EYE EXAM Routine 03/10/2024 DEPRESSION SCREENING Routine 02/05/2024 FALLS RISK ASSESSMENT Routine 02/05/2024 COLONOSCOPY Routine 11/18/2019 from Last 3 Months or Most Recently Relevant to Health Maintenance Results * (ABNORMAL) Microalbumin creatinine urine ratio (2024 12:47 PM EST) Creatinine, Urine 18.0 mg/dL LAB CHEMISTRY METHOD 2024 3:14 PM EST [facility] Microalb, Ur 5.4 0.0 - 29.0 mg/L LAB CHEMISTRY METHOD 2024 3:14 PM EST [facility] Microalb/Creat Ratio 30(H) <30 mg/g creat LAB CHEMISTRY METHOD 2024 3:14 PM EST [facility] Urine Urine specimen obtained by clean catch procedure / Unknown Non-blood Collection / Unknown 2024 12:47 PM EST 2024 12:47 PM EST us Sadie Fontanez MD LAB URINE ORDERABLES Final Res ult [facility] [address] [place] [address], [place] [phone] * (ABNORMAL) Hemoglobin A1c (2024 12:47 PM EST) Hemoglobin A1C 9.0(H) <6.5 % LAB CHEMISTRY METHOD 2024 9:16 PM EST [facility] Mean Bld Glu Estim. 212 mg/dL LAB CHEMISTRY METHOD 2024 9:16 PM EST [facility] Blood Venous blood specimen / Unknown Venipuncture / Unknown 2024 12:47 PM EST 2024 12:47 PM EST us Sadie Fontanez MD LAB BLOOD ORDERABLES Final Res ult [facility] [address] [place] [address], * (ABNORMAL) Comprehensive metabolic panel (2024 12:47 PM EST) Sodium 135 133 - 145 mmol/L LAB CHEMISTRY METHOD 2024 4:16 PM EST [facility] Potassium 4.4 3.5 - 5.5 mmol/L LAB CHEMISTRY METHOD 2024 4:16 PM [facility] Chloride 102 96 - 110 mmol/L LAB CHEMISTRY METHOD 2024 4:16 PM [facility] CO2 27 21 - 32 mmol/L LAB CHEMISTRY METHOD 2024 4:16 PM [facility] Anion Gap 6 3 - 11 LAB CHEMISTRY METHOD 2024 4:16 PM [facility] Glucose 195(H) 70 - 100 mg/dL LAB CHEMISTRY METHOD 2024 4:16 PM [facility] BUN 13 5 - 25 mg/dL LAB CHEMISTRY METHOD 2024 4:16 PM [facility] Creatinine 0.93 0.70 - 1.30 mg/dL LAB CHEMISTRY METHOD 2024 4:16 PM [facility] eGFR 87 >=60 mL/min/1. 73m2 LAB CHEMISTRY METHOD 2024 4:16 PM [facility] Comment:Calculation based on the??Chronic Kidney Disease Epidemiology Collaboration (CKD-EPI) equation refit??without adjustment for race. BUN/Creatinine Ratio 14.0 LAB CHEMISTRY METHOD 2024 4:16 PM [facility] Calcium 9.7 8.5 - 10.5 mg/dL LAB CHEMISTRY METHOD 2024 4:16 PM [facility] AST (SGOT) 24 10 - 42 unit/L LAB CHEMISTRY METHOD 2024 4:16 PM [facility] ALT (SGPT) 32 10 - 60 unit/L LAB CHEMISTRY METHOD 2024 4:16 PM [facility] Alkaline Phosphatase 72 42 - 121 unit/L LAB CHEMISTRY METHOD 2024 4:16 PM [facility] Total Protein 7.4 6.0 - 8.0 g/dL LAB CHEMISTRY METHOD 2024 4:16 PM [facility] Albumin 4.3 3.2 - 5.0 g/dL LAB CHEMISTRY METHOD 2024 4:16 PM [facility] Total Bilirubin 0.8 0.0 - 1.4 mg/dL LAB CHEMISTRY METHOD 2024 4:16 PM [facility] Blood Venous blood specimen / Unknown Venipuncture / Unknown 2024 12:47 PM EST 2024 12:47 PM EST us Sadie Fontanez MD LAB BLOOD ORDERABLES Final Res ult [facility] [address] [place] [address], * (ABNORMAL) Lipid panel (04/29/2024) Pathologist [facility] LDL/HDL Ratio 2 0 - 4 Triglycerides 141 0 - 150 mg/dL Cholesterol 77 0 - 200 mg/dL HDL 35(A) >=40 mg/dL LDL Cholesterol 14 0 - 100 mg/dL Blood Venous blood specimen / Unknown Historical Provider LAB BLOOD ORDERABLES Tarsha l Result * Diabetes Foot Exam (03/18/2024) Pathologist [facility] Diabetes: Annual Foot Exam Abstracted Historical Provider HEALTH MAINTENANCE Final Result * Diabetes Eye Exam (03/10/2024) Pathologist [facility] Diabetes: Annual Retina Eye Exam Abstracted [facility] Provider HEALTH MAINTENANCE Final Result * Falls Risk Assessment (02/05/2024) Pathologist [facility] Falls Risk Assessment Abstracted [facility] Provider HEALTH MAINTENANCE Final Result * Depression Screening (02/05/2024) Pathologist [facility] Depression Screening Abstracted [facility] Provider HEALTH MAINTENANCE Final Result * Colonoscopy (11/18/2019) Pathologist [facility] Colonoscopy No Interpretation , Abstracted Anatomical Region Laterality Modality Other [facility] Provider HEALTH MAINTENANCE Final Result from Last 3 Months or Most Recently Relevant to Health Maintenance Insurance MEDICAID - [place] MEDICARE Care Teams Medical Education Coordinator Relationship Specialty Start Date End Date Sadie Fontanez MD 175 [facility] [address] [place] [phone] PCP - General Internal Medicine 01/30/25
--- OUTSIDE RECORDS SUMMARY | 2025-03-04 08:59 | XMS_ITS | Clinical Summary ---
Author Organization [facility] Address [address] [place] [address] Care Team Providers Care Circular Gang Saw Operator Name Role Phone Unavailable Primary Care Provider Unavailabl e Source Comments PLEASE NOTE, if this patient is a minor, it may be UNLAWFUL to discuss sensitive information that is contained in these records (such as FAMILY PLANNING, MENTAL HEALTH or SUBSTANCE ABUSE) with the minor patient's parent or other person without the patient's specific authorization.[facility] Immunizations Immunization Administration Dates Next Due Moderna COVID-19 Vaccine, re d cap blue label, 12+ Primary Series 04/05/2021,03/08/2021 Social History Tobacco Use Types Packs/Day Years Used Date Smoking Tobacco: Never Assessed Social Connections Answer Date Recorded Social Connections and Isolation 0 03/08/2021 Financial Resource Strain Answer Date R ecorded Financial Resource Strain 0 2020 Stress Answer Date Recorded Stress 0 03/08/2021 Physical Activity Answer Date Recorded Physical Activity 0 03/08/2021 Food Insecurity Answer Date Recorded Food 0 03/08/2021 Transportation Needs Answer Date Record ed Transportation 0 03/08/2021 Housing Stability Answer Date Recorded Housing 0 03/08/2021 Safety and Environment Answer Date Stephon rded Safety 0 03/08/2021 Utilities Answer Date Recorded Utilities 0 03/08/2021 Employment Answer Date Recorded Employment 0 03/08/2021 Sex and Gender Information Value Date Recorded Sex Assigned at Not on file Legal Sex Male 10:28 AM PDT Gender Identity Not on file Sexual Orientation Not on file Plan of Treatment Health Maintenance Due Date Last Done Comments Hepatitis C Screening 1952 Lipid Screening 1952 Tobacco Screening 1952 Hypertension Screening (#1) 1970 Medicare Annual Wellness Visit 1970 Imm-DTaP/Tdap/Td (1 - Tdap) 1971 CT Colonography 1997 Colonoscopy 1997 Colorectal Cancer Screening 1997 FIT/gFOBT 1997 Fecal DNA 1997 Flexible Sigmoidoscopy 1997 Imm-Pneumococcal 65+ (1 of 1 - PCV) 2002 Imm-Zoster, Recombinant (1 of 2) 2002 Abdominal Aortic Aneurysm Screening 2017 Falls Prevention 2017 [id number] ( season) 2024 021, 03/08/2021 Imm-Influenza (#1) 2024 Alcohol and Drug Screen 11/19/2024 Depression Annual Screen 11/19/2024 Insurance [place] MEDICAID Member Subscriber Plan / Payer (Ef fective 2021-Present) Name:Felipe Olivas Relation to Subscriber:Self Name:Felipe Olivas Payer ID:[id number] Type:Medicaid Address: [address] [id number] MEDICARE - [place]
== END 2025-03-04 09:15 | disposition home or self-care (01) ==
LOC: HO.HSMS 08:39
PROVIDERS: PCP Internal Medicine; Visit Provider Psychiatry & Neurology Neurology
DX: G47.33 Obstructive sleep apnea (adult) (pediatric) (principal); G47.10 Hypersomnia, unspecified
CPT/HCPCS: 99214; G2211

== ENCOUNTER → 2025-03-04 08:38 | Outpatient (BNVA) | payer MEDICARE, MEDICAID, SELFPAY | PROVIDERS: PCP Internal Medicine; Visit Provider Psychiatry & Neurology Neurology | DX: G47.33 Obstructive sleep apnea (adult) (pediatric) (principal); G47.10 Hypersomnia, unspecified | CPT/HCPCS: 99212 ==

== ENCOUNTER → 2025-03-29 19:30 | Outpatient (REF) | payer MEDICARE, MEDICAID, SELFPAY ==
--- OUTSIDE RECORDS SUMMARY | 2025-03-30 01:34 | XMS_ITS | Encounter Summary ---
Author Organization [facility] Address [address] [place] [address] Care Team Providers Care Marine Consultant Name Role Phone Sadie Fontanez MD Primary Care Provider [phone] Reason for Visit * Reason Onset Date Comments Med Refill 03/06/2025 Encounter Details Date Type Department Care Team (Late st Contact Info) Description 03/06/2025 Telephone Endocrinology - [place] [address] [place] [phone] Airam Dejesus PA [address] [place] [address] Med Refill Social History Tobacco Use Types Packs/Day Years Used Date Smoking Tobacco: Never Smokeless Tobacco: Never Alcohol Use Standard Drinks/Week Comments No 0 (1 standard drink = 0.6 oz pur e alcohol) Sex and Gender Information Value Date Recorded Sex Assigned at Not on file Legal Sex Male 4:37 AM EST Gender Identity Not on file Sexual Orientation Not on file documented as of this encounter Progress Notes * Leisa Valle RN - 03/09/2025 3:00 PM EDT Message sent to [employer] in regards to refill and what documentation is needed Answer pending * Jovita Gonzalez - 03/06/2025 10:50 AM EDT Patients beto Wang is calling, states that [employer] advised patient that they are waiting on paperwork from us, in order to fill his Dexcom G7 sensors. He is wondering if this has been received and if so, if we could complete so patient can get his sensors. documented in this encounter Plan of Treatment Upcoming Encounters Date Type Department Care Team (Late st Contact Info) Description 06/02/2025 2:00 PM EDT Consult Orthopedic Surgery - [place] [address] [facility] [address] [place] [phone] Kris Rodriguez DPM 175 [facility] [address] [place] [address] 07/23/2025 12:45 PM EDT Office Visit Internal Medicine - [place] 175 [facility] [address] [place] [phone] Sadie Fontanez MD 175 [facility] [address] [place] [phone] documented as of this encounter Visit Diagnoses Not on filedocumented in this encounter Care Teams Marine Consultant Relationship Specialty Start Date End Date Sadie Fontanez MD [address] [facility] [address] [place] [phone] PCP - General Internal Medicine 01/30/25 documented as of this encounter
--- OUTSIDE RECORDS SUMMARY | 2025-03-30 01:34 | XMS_ITS | Clinical Summary ---
Author Organization 175 [facility] Address [address] [place] [address] Phone Care Team Providers Care Adjunct Faculty For Medical Terminology Name Role Phone Sadie Fontanez MD Primary Care Provider Allergies Active Allergy Reactions Criticality Noted Date Comments Dulaglutide 05/30/2019 Pancreatitis Medications pen needle, diabetic (BD Ultra-Fine Short Pen Needle) 31 gauge x 5/16 needle USE 1 PEN NEEDLE 4 TIMES DAILY 06/24/20 24 Active blood-glucose meter kit Use to test BS 3 times daily. Dx Code E11.59 01/08/20 23 Active ONETOUCH ULTRASOFT LANCETS MISC Use to check BS 4 times a day 10/10/20 22 Active OneTouch Ultra Test test strip USE 1 STRIP TO CHECK GLUCOSE THREE TIMES DAILY 07/17/20 24 Active albuterol HFA (PROAIR HFA ; PROVENTIL HFA ; VENTOLIN HFA) 90 mcg/actuation inhaler Inhale 2 Puffs into the lungs every 4 hours as needed for Cough, Wheezing or Shortness of Breath. 10/23/20 23 Active aspirin 81 mg EC tablet Take 1 Tablet by mouth daily. 04/16/20 24 Active atorvastatin (LIPITOR) 80 mg tablet Take 1 Tablet by mouth daily. 07/04/20 24 Active diclofenac (VOLTAREN) 1 % topical gel Apply 1 Dose topically 2 times daily. 07/04/20 24 Active ezetimibe (ZETIA) 10 mg tablet Take 1 Tablet by mouth daily. 07/04/20 24 Active insulin aspart (NovoLOG Flexpen U-100 Insulin) 100 unit/mL (3 mL) injection pen Inject 3 times a day with meals per scale: 100-149: 5 units; 150-200: 6 units; 201-250: 7units; 251-300: 8 units; 301-350: 9 units; 351-400: 10 units 05/02/20 Active insulin glargine (Lantus Solostar U-100 Insulin) 100 unit/mL (3 mL) injection pen Inject 42 Units into the skin 2 times daily (with meals). 08/20/20 24 Active metFORMIN (GLUCOPHAGE) 1,000 mg tablet Take 1 Tablet by mouth 2 times daily (with meals). 07/04/20 24 Active magnesium oxide (MAG-OX) 400 mg magnesium tablet Take 1 tablet (400 mg total) by mouth 2 (two) times a day. 180 tablet 2 11/13/20 24 Active omeprazole (PriLOSEC) [address] capsule Take 1 capsule by mouth once daily 90 capsule 1 12/15/19 25 Active blood-glucose sensor (Dexcom G7 Sensor) device Apply topically continuously. Box = Kit = EA 1 each 3 03/12/20 25 Active blood-glucose ,training mgr,con t (Dexcom G7 Medical Record Specialist) misc Apply topically continuously. 1 each 2 03/12/20 25 Active amLODIPine (NORVASC) 10 mg tablet Take 1 tablet (10 mg total) by mouth 1 (one) time each day. 30 each 5 03/12/20 25 Active magnesium oxide (MAG-OX) 400 mg (241.3 elemental magnesium) tablet Take 1 tablet by mouth once daily 90 tablet 03/23/20 25 Active sildenafiL (VIAGRA) 100 mg tablet TAKE 1 TABLET BY MOUTH NEEDED FOR ERECTILE DYSFUNCTION 10 tablet 03/24/20 25 Active blood-glucose meter,continu ous (Dexcom G7 Medical Record Specialist) misc 1 Device by Does not apply route See Admin Instructions. Use daily with dexcom g 7 sensors 02/29/20 24 025 Discontinued(Re order) blood-glucose sensor (Dexcom G7 Sensor) device 1 Device by Does not apply route See Admin Instructions. Change sensor every 10 days 02/29/20 24 025 Discontinued(Re order) amLODIPine (NORVASC) 5 mg tablet Take 1 Tablet by mouth daily. 07/04/20 24 025 Discontinued(Re order) sildenafiL (VIAGRA) 100 mg tablet TAKE 1 TABLET BY MOUTH NEEDED FOR ERECTILE DYSFUNCTION 10 tablet 01/29/20 25 025 Discontinued amLODIPine (NORVASC) 5 mg tablet Take 1 tablet (5 mg total) by mouth 1 (one) time each day. 90 tablet 3 03/12/20 25 025 Discontinued(Ex pired) Active Problems Problem Noted Date Diagnosed Date Abdominal pain 09/16/2024 Change in bowel habits 09/16/2024 Encounter for diagnostic col onoscopy due to change in bowel habits 09/16/2024 Thalamic stroke ([facility] V24, [facility] V28) 04/21 Overview (09/16/2024): Subacute left Ataxia 04/21/2022 Dysuria 04/21/2022 Arterial ischemic stroke, ve rtebrobasilar, thalamic, acute, left ([facility] V24, [facility] V28) 03/06/2022 Pinched nerve in shoulder, left [...] the last one was not. Continue statin. Assessment & Plan (03/12/2025 10:22 PM EDT): Orders: Hemoglobin A1c; Future Magnesium; Future Primary hypertension 11/06/2017 Overview (09/16/2024): Last Assessment & Plan: Improved, continue CRYSTAL, CCB Assessment & Plan (03/12/2025 10:22 PM EDT): Orders: Hemoglobin A1c; Future Magnesium; Future Allergic rhinitis 04/05/2017 GERD (gastroesophageal reflux disease) 11/10/201 6 Erectile dysfunction 07/26/2016 Fatty infiltration of liver 07/26/2016 Vitamin D deficiency 07/26/2016 Type 2 diabetes mellitus wit h vascular disease ([facility] V24, [facility] V28) 03/10/2016 Assessment & Plan (03/12/2025 10:22 PM EDT): Orders: Hemoglobin A1c; Future Magnesium; Future Ambulatory referral to Podiatry; Future Encounters Date Type Department Care Team Description 03/25/2025 Telephone Internal Medicine - [address] [phone] Alma Olivas [place] faxed form ([facility]) 03/18/2025 Telephone Internal Medicine [address] [phone] Alma Olivas [place] faxed order ([employer] [facility]) 03/12/2025 12:45 PM EDT Office Visit Internal Medicine - [address] [phone] Sadie Fontanez MD Type 2 diabetes mellitus with vascular disease ([facility] V24, [facility] V28) (Primary Dx); Mixed hyperlipidemia; Primary hypertension; Encounter for subsequent annual wellness visit (AWV) in Medicare patient 03/06/2025 Telephone Endocrinology - [address] [phone] Airam Dejesus PA Med Refill 02/05/2025 12:45 PM EDT Office Visit Internal Medicine [address] [phone] Sadie Fontanez MD Nipple pain (Primary Dx); Type 2 diabetes mellitus with vascular disease ([facility] V24, [facility] V28); Primary hypertension 01/30/2025 Telephone Internal Medicine [address] [phone] Sadie Fontanez MD 01/23/2025 Telephone Endocrinology - [address] [phone] Airam Dejesus PA from Last 3 Months [...] 52 along with an EGD ESOPHAGOGASTRODUODENOSCOPY PROCEDURE: PA EGD TRANSORAL BIOPSY SINGLE/MULTIPLE; COMMENT: Performed with [...] Sign Reading Time Taken Comments Blood Pressure 152/62 03/12/2025 12:26 PM EDT Pulse 80 03/12/2025 12:23 PM EDT Temperature 36.3 ??C (97.3 ??F) 03/12/2025 12:23 PM E DT Respiratory Rate - - Oxygen Saturation 96% 03/12/2025 12:23 PM EDT Inhaled Oxygen Concentration - - Weight 81.6 kg (180 lb) 03/12/2025 12:23 PM EDT Height 175.3 cm (5' 9 ) 10/27/2024 3:18 PM EST Body Mass Index 26.58 10/27/2024 3:18 PM EST Plan of Treatment Upcoming Encounters Date Type Department Care Team (Late st Contact Info) Description 06/02/2025 2:00 PM EDT Consult Orthopedic Surgery - [place] [address] [phone] Kris Rodriguez DPM 175 [facility] [address] [place] [address] 07/23/2025 12:45 PM EDT Office Visit Internal Medicine - [place] 175 [facility] [address] [place] [phone] Sadie Fontanez MD 175 [facility] [address] [place] [phone] Health Maintenance Due Date Last Done Comments [...] Vaccine (3 - season) 2024 04/05/2021, 03/08/2021 Diabetes: Annual Retina Eye Exam 03/10/2025 03/10/2024 Diabetes: Annual Foot Exam 03/18/2025 03/18/2024 Influenza Vaccine (Season Ended) 2025 Diabetes: Blood Sugar Control Test (HGBA1C) 09/11/2025 03/12/2025, 2024, 08/04/2024, Additional history exists Diabetes: Annual Urine Albumin-Creatinine Ratio (uACR) 2025 2024, 04/29/2024 Diabetes: Annual GFR (Glomerular Filtration Rate) 2025 2024, 04/29/2024 Hypertension/CHF/CAD Annual BMP Blood Test 2025 2024, 04/29/2024 Depression Screening 03/12/2026 03/12/2025, 02/05/20 Falls Risk Assessment 03/12/2026 03/12/2025, 024 Medicare Annual Wellness Visit 03/12/2026 03/12/2025 Cholesterol Screening (Lipid Panel) 04/29/2029 04/29/2024, 04/29/2024 [...] Procedure Name Priority Date/Time Associated Diagnosis Comments HEMOGLOBIN A1C Routine 03/12/2025 1:24 PM EDT Type 2 diabetes mellitus with vascular disease (CMS/HCC V24, CMS/HCC V28) Mixed hyperlipidemia Primary hypertension MAGNESIUM Routine 03/12/2025 1:24 PM EDT Type 2 diabetes mellitus with vascular disease ([facility] V24, [facility] V28) Mixed hyperlipidemia Primary hypertension MICROALBUMIN CREATININE URINE RATIO Routine 2024 12:47 PM EST Type 2 diabetes mellitus with vascular disease ([facility] V24, [facility] V28) Primary hypertension Mixed hyperlipidemia Screening for malignant neoplasm of prostate COMPREHENSIVE METABOLIC PANEL Routine 2024 12:47 PM EST Type 2 diabetes mellitus with vascular disease ([facility] V24, [facility] V28) Primary hypertension Mixed hyperlipidemia LIPID PANEL Routine 04/29/2024 DIABETES FOOT EXAM Routine 03/18/2024 DIABETES EYE EXAM Routine 03/10/2024 DEPRESSION SCREENING Routine 02/05/2024 FALLS RISK ASSESSMENT Routine 02/05/2024 COLONOSCOPY Routine 11/18/2019 from Last 3 Months or Most Recently Relevant to Health Maintenance Results * Magnesium (03/12/2025 1:24 PM EDT) Magnesium 1.9 1.9 - 2.6 mg/dL LAB CHEMISTRY METHOD 03/12/2025 4:07 PM EDT [facility] Blood Venous blood specimen / Unknown Venipuncture / Unknown 03/12/2025 1:24 PM EDT 03/12/2025 3:01 PM EDT us Sadie Fontanez MD LAB BLOOD ORDERABLES Final Res ult [facility] [address] [place] [address], [place] [phone] * (ABNORMAL) Hemoglobin A1c (03/12/2025 1:24 PM EDT) Hemoglobin A1C 8.9(H) <6.5 % LAB CHEMISTRY METHOD 03/12/2025 3:36 PM EDT [facility] Mean Bld Glu Estim. 209 mg/dL LAB CHEMISTRY METHOD 03/12/2025 3:36 PM EDT [facility] Blood Venous blood specimen / Unknown Venipuncture / Unknown 03/12/2025 1:24 PM EDT 03/12/2025 3:00 PM EDT Sadie Fontanez MD LAB BLOOD ORDERABLES Final Res ult Performing Organization Address [facility]/ZIP Co de Phone Number [facility] [address] [place] [address], * (ABNORMAL) Microalbumin creatinine urine ratio (2024 12:47 PM EST) Creatinine, Urine 18.0 mg/dL LAB CHEMISTRY METHOD 2024 3:14 PM EST [facility] Microalb, Ur 5.4 0.0 - 29.0 mg/L LAB CHEMISTRY METHOD 2024 3:14 PM EST [facility] Microalb/Creat Ratio 30(H) <30 mg/g creat LAB CHEMISTRY METHOD 2024 3:14 PM EST [facility] Urine Urine specimen obtained by clean catch procedure / Unknown Non-blood Collection / Unknown 2024 12:47 PM EST 2024 12:47 PM EST us Sadie Fontanez MD LAB URINE ORDERABLES Final Res ult Performing Organization Address [facility]/ZIP Co de Phone Number [facility] [address] [place] [address], [place] [phone] * (ABNORMAL) Comprehensive metabolic panel (2024 12:47 PM EST) Sodium 135 133 - 145 mmol/L LAB CHEMISTRY METHOD 2024 4:16 PM [facility] Potassium 4.4 3.5 - 5.5 mmol/L LAB CHEMISTRY METHOD 2024 4:16 PM [facility] Chloride 102 96 - 110 mmol/L LAB CHEMISTRY METHOD 2024 4:16 PM [facility] CO2 27 21 - 32 mmol/L LAB CHEMISTRY METHOD 2024 4:16 PM [facility] Anion Gap 6 3 - 11 LAB CHEMISTRY METHOD 2024 4:16 PM [facility] Glucose 195(H) 70 - 100 mg/dL LAB CHEMISTRY METHOD 2024 4:16 PM [facility] BUN 13 5 - 25 mg/dL LAB CHEMISTRY METHOD 2024 4:16 PM [facility] Creatinine 0.93 0.70 - 1.30 mg/dL LAB CHEMISTRY METHOD 2024 4:16 PM [facility] eGFR 87 >=60 mL/min/1. 73m2 LAB CHEMISTRY METHOD 2024 4:16 PM [facility] Comment:Calculation based on the??Chronic Kidney Disease Epidemiology Collaboration (CKD-EPI) equation refit??without adjustment for race. BUN/Creatinine Ratio 14.0 LAB CHEMISTRY METHOD 2024 4:16 PM [facility] Calcium 9.7 8.5 - 10.5 mg/dL LAB CHEMISTRY METHOD 2024 4:16 PM [facility] AST (SGOT) 24 10 - 42 unit/L LAB CHEMISTRY METHOD 2024 4:16 PM [facility] ALT (SGPT) 32 10 - 60 unit/L LAB CHEMISTRY METHOD 2024 4:16 PM EST [facility] Alkaline Phosphatase 72 42 - 121 unit/L LAB CHEMISTRY METHOD 2024 4:16 PM [facility] Total Protein 7.4 6.0 - 8.0 g/dL LAB CHEMISTRY METHOD 2024 4:16 PM [facility] Albumin 4.3 3.2 - 5.0 g/dL LAB CHEMISTRY METHOD 2024 4:16 PM [facility] Total Bilirubin 0.8 0.0 - 1.4 mg/dL LAB CHEMISTRY METHOD 2024 4:16 PM [facility] Blood Venous blood specimen / Unknown Venipuncture / Unknown 2024 12:47 PM EST 2024 12:47 PM EST Sadie Fontanez MD LAB BLOOD ORDERABLES Final Res ult [facility] [address] [place] [address], * (ABNORMAL) Lipid panel (04/29/2024) [facility] LDL/HDL Ratio 2 0 - 4 Triglycerides 141 0 - 150 mg/dL Cholesterol 77 0 - 200 mg/dL HDL 35(A) >=40 mg/dL LDL Cholesterol 14 0 - 100 mg/dL Blood Venous blood specimen / Unknown Historical [facility] LAB BLOOD ORDERABLES Tarsha l Result * Diabetes Foot Exam (03/18/2024) Pathologist [facility] Diabetes: Annual Foot Exam Abstracted Historical Provider HEALTH MAINTENANCE Final Result * Diabetes Eye Exam (03/10/2024) [facility] Diabetes: Annual Retina Eye Exam Abstracted Historical Provider HEALTH MAINTENANCE Final Result * Falls Risk Assessment (02/05/2024) Falls Risk Assessment Abstracted Historical Provider HEALTH MAINTENANCE Final Result * Depression Screening (02/05/2024) Depression Screening Abstracted Historical Provider HEALTH MAINTENANCE Final Result * Colonoscopy (11/18/2019) Colonoscopy No Interpretation , Abstracted Anatomical Region Laterality Modality Other Historical Provider HEALTH MAINTENANCE Final Result from Last 3 Months or Most Recently Relevant to Health Maintenance Insurance MEDICAID - [place] MEDICARE Care Teams Adjunct Faculty For Medical Terminology Relationship Specialty Start Date End Date Sadie Fontanez MD [address] [facility] [address] [place] [phone] PCP - General Internal Medicine 01/30/25
--- OUTSIDE RECORDS SUMMARY | 2025-03-30 01:34 | XMS_ITS | Clinical Summary ---
Author Organization [facility] Address [address] [place] [address] Care Team Providers Care Clinical Trial Associate Name Role Phone Unavailable Primary Care Provider [...] Aortic Aneurysm Screening 2017 Falls Prevention 2017 [id number] ( season) 2024 021, 03/08/2021 Imm-Influenza (#1) 2024 Alcohol and Drug Screen 11/19/2024 Depression Annual Screen 11/19/2024 Insurance [place] MEDICA[place] Member Subscriber Plan / Payer (Ef fective 2021-Present) Name:Felipe Olivas Relation to Subscriber:Self Name:Felipe Olivas Payer ID:[id number] Type:Medicaid Address: [address] [id number] MEDICARE - [place]
== END ==
LOC: HO.SL 19:30
PROVIDERS: PCP Internal Medicine; Visit Provider Psychiatry & Neurology Neurology
DX: Z13.89 Encounter for screening for other disorder (principal)

== ENCOUNTER 2025-07-06 09:40 | Outpatient (AMB) | payer MEDICARE, MEDICAID, SELFPAY ==
--- NOTE | 2025-07-06 10:03 | MHC.OFFVIS ---
Vital Signs 07/06/25 10:04 Height 5 ft 9 in Weight 234 lb BMI 34.6 BP 130/56 L Blood Pressure Location Rt brachial Position Sitting Pulse 73 Pulse Source Pulse Oximeter Pulse Oximetry (%) 96 Oxygen Delivery Method Room Air Intake Visit Reasons: 4 mo follow up Intake Note: Patient presents follow up ANTHONY. PSG in chart(AHI-22, REM AHI- 44, YVONNE 77%. BIPAP- 25/20). Patient does not want to use machine. Epitaxial Reactor Operator Required: Yes Epitaxial Reactor Operator Language: Inventory Control Supervisor Services: Epitaxial Reactor Operator Offered & Declined Epitaxial Reactor Operator Name: Self Information Interpreted: non-clinical & clinical Accompanied by: Self / Same As Patient Allergies No Known Allergies Allergy (Verified 07/06/25 10:07) HPI Comments Details: 74 y/o Bruneian speaking male patient with h/o of stroke and T2DM presents for a follow up of severe ANTHONY. Epitaxial Reactor Operator on IPAD helps with history taking. HST c/w AHI 30/hr and O2 Nadirs to 79% he has severe anthony, he is unable to use his cpap at 9cmH20 due to dryness of nose and he was referred to ENT for DISE procedure. He has rhinorrhea and nasal congestion with temperature fluctuations and continues to be non-compliant. 03/2025 Split night study and titration in lab AHI 22 and REM AHI is 44, oxygen nadirs to 77%. Patient was started on BIPAP therapy /. Patient had a stroke 2 years ago and today we discussed the significance of using his bipap consistently. He says he will try to use the bipap machine as he is having 44 episodes a night during REM and oxygen drops down to 71% at the minimum. He says his machine's filter is broken, and he does not know where to get the correct pieces for the hose as it is leaking and not working properly due to this broken hose fitting. We discussed getting a new part for his machine and compliance requirements of at least >4 hours per night. Pt continues to endorse frequent gasping arousals, and non refreshing sleep. He has T2DM on 4 medications and continues to have visual disturbances. He has bilateral hearing aids in and cognitive deficits with recall of words, getting lost in conversations, forgetting the days of the week. He has RLS and pain bilaterally in his feet. He is referred to ENT for a DISE procedure evaluation and will f/u with them next month. [facility] Medical History Hypersomnia Snoring Erectile dysfunction Pancreatitis GERD (gastroesophageal reflux disease) HTN (hypertension) Diabetes Arterial ischemic stroke, vertebrobasilar, thalamic, remote, resolved Surgical History Hx of colonoscopy Family History Mother Myocardial infarction Father Diabetes Social History Alcohol intake: never Patient Tobacco Use Status: Never used Tobacco Physical Exam Vital Signs: Last Vital Signs Pulse 73 07/06/25 10:04 BP 130/56 L 07/06/25 10:04 Pulse Ox 96 07/06/25 10:04 Oxygen Delivery Method Room Air 07/06/25 10:04 BMI result Body Mass Index 34.6 Const General: cooperative, healthy appearing, comfortable and no acute distress Nutritional Appearance: average body habitus Orientation/consciousness: patient oriented x3 HEENT Head: Yes normal to inspection Eyes Pupils: Equal, round and reactive pupils present Neuro Other: hearing loss, uses hearing aid bilaterally. General: patient oriented x3, gait normal, tone normal, moves all extremities and no focal motor deficits Cranial nerves: Yes Facial sensation intact/muscles of mastication intact, Yes Equal, round and reactive pupils present, Yes Bilaterally intact EOM present, Yes Nystagmus not present, Yes Normal facial strength present, Yes Midline tongue present and Yes Symmetric palate elevation present Cognition (Neuro): normal cognition Gait exam (Neuro): Other gait observations present (mild off balance) Motor exam (neuro): 5/5 motor strength present throughout and Normal motor muscle tone present throughout Coordination: [id number] test normal Results Reviewed Results Reviewed: 03/2025 Split night study and titration in lab AHI 22 and REM AHI is 44, oxygen nadirs to 77%. Patient was started on BIPAP therapy /. Assessment & Plan Assessment & Plan (1) ANTHONY treated with BiPAP: Comment: continue use of bipap Code(s): G47.33 - Obstructive sleep apnea (adult) (pediatric) Category: Medical (2) Dry mouth: Code(s): R68.2 - Dry mouth, unspecified Category: Medical (3) RLS (restless legs syndrome): Code(s): G25.81 - Restless legs syndrome Category: Medical (4) ANTHONY (obstructive sleep apnea): Comment: Severe degree of sleep apnea. The AHI was 30/hr and oxygen yvonne was 79% Code(s): G47.33 - Obstructive sleep apnea (adult) (pediatric) Category: Medical (5) Hypersomnia: Code(s): G47.10 - Hypersomnia, unspecified Category: Medical (6) Forgetfulness: Code(s): R68.89 - Other general symptoms and signs Category: Medical Plan ANTHONY will send for mask fitting and have rx sent for repair of hoses, and or fitting for hoses. Reviewed guidelines for compliance of >4 hours daily at night. He will f/u with his sleep company. Dry mouth may use xylitol tabs at night to increase salivation. Rhinorrhea due to temperature fluctuations may use fluticasone one spray in each nostril to help ease the congestion. May use zyrtec also for seasonal allergies. Forgefulness will evaluate with MMSE at next visit. ENT for DISE Evaluation if patient is amenable. F/U in 3 moths for compliance. Patient Instructions: Sleep Hygiene provided: set a scheduled bedtime and wake time to help regulate the circadian rhythm and balance the release of pituitary hormones. Sleep in a dark room, temperatures below 68 degrees, and no devices n bed. Limit caffeinated products 6 hours prior to bed, and limit fluids 2-4 hours prior to bed. Gentle night yoga, diffusing essential oils, and playing soft music can be relaxing. Significant time was spent explaining to patient the comorbidities and risks of cognitive decline due to hearing loss, vision disturbance and anosmia all affecting memory and could lead to dementia and he has experienced a stroke in 2022, making him more vulnerable to these insults. Coding Level of Care Code Est Pt Level 4 (72645) Diagnoses ANTHONY treated with BiPAP G47.33 Dry mouth R68.2 RLS (restless legs syndrome) G25.81 ANTHONY (obstructive sleep apnea) G47.33 Hypersomnia G47.10 Forgetfulness R68.89
[2025-07-06 10:04] VITALS: BP 130/56; PULSE 73; O2SAT 96; BMI 34.6
--- OUTSIDE RECORDS SUMMARY | 2025-07-06 10:19 | XMS_ITS | Clinical Summary ---
Author Organization [address] [facility] Address [address] [place] [address] Phone Care Team Providers Care Ict Educator Name Role Phone Sadie Fontanez MD Primary Care Provider [phone] Allergies Active Allergy Reactions Criticality Noted Date Comments Dulaglutide 05/30/2019 Pancreatitis Medications blood-glucose meter kit Use to test BS [...] topically 2 times daily. 07/04/20 24 Active insulin aspart (NovoLOG Flexpen U-100 Insulin) 100 unit/mL (3 mL) injection pen Inject 3 times a day with meals per scale: 100-149: 5 units; 150-200: 6 units; 201-250: 7units; 251-300: 8 units; 301-350: 9 units; 351-400: 10 units 05/02/20 24 Active magnesium oxide (MAG-OX) 400 mg magnesium tablet Take 1 tablet (400 mg total) by mouth 2 (two) times a day. 180 tablet 2 11/13/20 24 Active blood-glucose sensor (Dexcom G7 Sensor) device Apply topically continuously. Box = Kit = EA 1 each 3 03/12/20 25 Active blood-glucose,re ceiver,cont (Dexcom G7 Delinquent Tax Collector Assistant) misc Apply topically continuously. 1 each 2 03/12/20 25 Active amLODIPine (NORVASC) 10 mg tablet Take 1 tablet (10 mg total) by mouth 1 (one) time each day. 30 each 5 03/12/20 25 Active metFORMIN (GLUCOPHAGE) 1,000 mg tablet TAKE 1 TABLET BY MOUTH TWICE DAILY WITH MEALS 180 tablet 1 04/10/20 25 Active insulin glargine (Lantus Solostar U-100 Insulin) 100 unit/mL (3 mL) injection pen Inject 42 Units under the skin 2 (two) times a day. 15 mL 5 05/07/20 25 Active sildenafiL (VIAGRA) 100 mg tablet TAKE 1 TABLET BY MOUTH NEEDED FOR ERECTILE DYSFUNCTION 10 tablet 05/26/20 25 Active magnesium oxide (MAG-OX) 400 mg (241.3 elemental magnesium) tablet Take 1 tablet by mouth once daily 90 tablet 06/18/20 25 Active pen needle, diabetic (BD Ultra-Fine Short Pen Needle) 31 gauge x 5/16 needle Apply 1 each topically 2 (two) times a day. 100 each 06/18/20 25 Active omeprazole (PriLOSEC) [address] capsule Take 1 capsule by mouth once daily 90 capsule 06/18/20 25 Active ezetimibe (ZETIA) 10 mg tabletIndication s:Type 2 diabetes mellitus with other circulatory complications (CMS/HCC V24, CMS/HCC V28) Take 1 tablet by mouth once daily 90 tablet 07/02/20 25 Active omeprazole (PriLOSEC) [address] capsule Take 1 capsule by mouth once daily 90 capsule 1 12/15/19 25 2024 Discontinued magnesium oxide (MAG-OX) 400 mg (241.3 elemental magnesium) tablet Take 1 tablet by mouth once daily 90 tablet 03/23/20 25 2024 Discontinued ezetimibe (ZETIA) 10 mg tabletIndication s:Type 2 diabetes mellitus with other circulatory complications (CMS/HCC V24, CMS/HCC V28) Take 1 tablet by mouth once daily 90 tablet 04/06/20 25 2024 Discontinued BD Ultra-Fine Short Pen Needle 31 gauge x 5/16 needle USE 1 PEN NEEDLE 4 TIMES DAILY 100 each 05/25/20 25 2024 Discontinued omeprazole (PriLOSEC) [address] capsule Take 1 capsule by mouth once daily 90 capsule 06/15/20 25 2024 Discontinued Active Problems Problem Noted Date Diagnosed Date Abdominal pain 09/16/2024 Change in bowel habits 09/16/2024 Encounter for diagnostic col onoscopy due to change in bowel habits 09/16/2024 Thalamic stroke ([facility] V24, [facility] V28) 04/21 Overview (09/16/2024): Subacute left Ataxia 04/21/2022 Dysuria 04/21/2022 Arterial ischemic stroke, ve rtebrobasilar, thalamic, acute, left ([facility] V24, [facility] V28) 03/06/2022 Pinched nerve in shoulder, left [...] 2 diabetes mellitus wit h vascular disease ([facility] [place], [facility] V28) 03/10/2016 Assessment & Plan (03/12/2025 10:22 PM EDT): Orders: Hemoglobin A1c; Future Magnesium; Future Ambulatory referral to Podiatry; Future Encounters Date Type Department Care Team Description 06/02/2025 2:00 PM EDT Consult Orthopedic Surgery - [address] [address] Kris Rodriguez, DPM Type 2 diabetes mellitus with vascular disease ([facility] V24, [facility] V28) (Primary Dx); Arthritis of both feet; Achilles tendinitis, right leg; Dermatophytosis, nail 05/04/2025 Telephone Endocr[address] [address] Airam Dejesus PA prior authorization from Last 3 Months Immunizations Name Administration [...] 50 along with an EGD ESOPHAGOGASTRODUODENOSCOPY PROCEDURE: MN EGD TRANSORAL BIOPSY SINGLE/MULTIPLE; COMMENT: Performed with [...] 80 03/12/2025 12:23 PM EDT Temperature 36.3 C (97.3 F) 03/12/2025 12:23 PM EDT Respiratory Rate - - Oxygen Saturation 96% 03/12/2025 12:23 PM EDT Inhaled Oxygen Concentration - - Weight 81.6 kg (180 lb) 03/12/2025 12:23 PM EDT Height 175.3 cm (5' 9 ) 10/27/2024 3:18 PM EST Body Mass Index 26.58 10/27/2024 3:18 PM EST Plan of Treatment Upcoming Encounters Date Type Department Care Team (Late st Contact Info) Description 07/13/2025 3:15 PM EDT Office Visit Internal Medicine - [place] [address] [facility] [address] [place] [address] Sadie Fontanez MD 175 [facility] [address] [place] [address] 07/23/2025 12:45 PM EDT Office Visit Internal Medicine - [place] 175 [facility] [address] [place] [phone] Sadie Fontanez MD 175 [facility] [address] [place] [phone] 08/11/2025 1:00 PM EDT Office Visit Orthopedic Surgery - [place] [address] [facility] [address] [place] [phone] Kris Rodriguez DPM 175 [facility] [address] [place] [address] Health Maintenance Due Date Last Done Comments [...] Annual Foot Exam 03/18/2025 03/18/2024 Influenza Vaccine (#1) 2025 Diabetes: Blood Sugar Control Test (HGBA1C) 09/11/2025 03/12/2025, 2024, 08/04/2024, Additional history exists Diabetes: Annual Urine Albumin-Creatinine Ratio (uACR) 2025 2024, 04/29/2024 Diabetes: Annual GFR (Glomerular Filtration Rate) 2025 2024, 04/29/2024 Hypertension/CHF/CAD Annual BMP Blood Test 2025 2024, 04/29/2024 Falls Risk Assessment 03/12/2026 03/12/2025, 024 Medicare Annual Wellness Visit 03/12/2026 03/12/2025 Cholesterol Screening (Lipid Panel) 04/29/2029 04/29/2024, 04/29/2024 Colorectal Cancer Screening: Colonoscopy 11/18/2029 11/18/2019 Depression Screening Completed 03/12/2025, 02/05/20 24 HIB Vaccines Aged Out No longer eligi [...] V24, CMS/HCC V28) Mixed hyperlipidemia Primary hypertension MICROALBUMIN CREATININE URINE RATIO Routine 2024 12:47 PM EST Type 2 diabetes mellitus with vascular disease (CMS/HCC V24, CMS/HCC V28) Primary hypertension Mixed hyperlipidemia Screening for malignant neoplasm of prostate COMPREHENSIVE METABOLIC PANEL Routine 2024 12:47 PM EST Type 2 diabetes mellitus with vascular disease (CMS/HCC V24, CMS/HCC V28) Primary hypertension Mixed hyperlipidemia LIPID PANEL Routine 04/29/2024 HM DIABETES FOOT EXAM Routine 03/18/2024 DIABETES EYE EXAM Routine 03/10/2024 DEPRESSION SCREENING Routine 02/05/2024 FALLS RISK ASSESSMENT Routine 02/05/2024 COLONOSCOPY Routine 11/18/2019 from Last 3 Months or Most Recently Relevant to Health Maintenance Results * (ABNORMAL) Hemoglobin A1c (03/12/2025 1:24 PM EDT) Hemoglobin A1C 8.9(H) <6.5 % LAB CHEMISTRY METHOD 03/12/2025 3:36 PM EDT [facility] Mean Bld Glu Estim. 209 mg/dL LAB CHEMISTRY METHOD 03/12/2025 3:36 PM EDT [facility] Blood Venous blood specimen / Unknown Venipuncture / Unknown 03/12/2025 1:24 PM EDT 03/12/2025 3:00 PM EDT us Sadie Fontanez MD LAB BLOOD ORDERABLES Final Res ult [facility] [address] [place] [address], [place] [phone] * (ABNORMAL) Microalbumin creatinine urine ratio (2024 12:47 PM EST) Creatinine, Urine 18.0 mg/dL LAB CHEMISTRY METHOD 2024 3:14 PM EST [facility] Microalb, Ur 5.4 0.0 - 29.0 mg/L LAB CHEMISTRY METHOD 2024 3:14 PM EST [facility] Microalb/Creat Ratio 30(H) <30 mg/g creat LAB CHEMISTRY METHOD 2024 3:14 PM EST [facility] Urine Urine specimen obtained by clean catch procedure / Unknown Non-blood Collection / Unknown 2024 12:47 PM EST 2024 12:47 PM EST us Sadie Fontanez MD LAB URINE ORDERABLES Final Res ult [facility] [address] [place] [address], [place] [phone] * (ABNORMAL) Comprehensive metabolic panel (2024 12:47 PM EST) Sodium 135 133 - 145 mmol/L LAB CHEMISTRY METHOD 2024 4:16 PM [facility] Potassium 4.4 3.5 - 5.5 mmol/L LAB CHEMISTRY METHOD 2024 4:16 PM [facility] Chloride 102 96 - 110 mmol/L LAB CHEMISTRY METHOD 2024 4:16 PM [facility] CO2 27 21 - 32 mmol/L LAB CHEMISTRY METHOD 2024 4:16 PM [facility] Anion Gap 6 3 - 11 LAB CHEMISTRY METHOD 2024 4:16 PM [facility] Glucose 195(H) 70 - 100 mg/dL LAB CHEMISTRY METHOD 2024 4:16 PM [facility] BUN 13 5 - 25 mg/dL LAB CHEMISTRY METHOD 2024 4:16 PM [facility] Creatinine 0.93 0.70 - 1.30 mg/dL LAB CHEMISTRY METHOD 2024 4:16 PM [facility] eGFR 87 >=60 mL/min/1. 73m2 LAB CHEMISTRY METHOD 2024 4:16 PM [facility] Comment:Calculation based on the Chronic Kidney Disease Epidemiology Collaboration (CKD-EPI) equation refit without adjustment for race. BUN/Creatinine Ratio 14.0 LAB CHEMISTRY METHOD 2024 4:16 PM [facility] Calcium 9.7 8.5 - 10.5 mg/dL LAB CHEMISTRY METHOD 2024 4:16 PM [facility] AST (SGOT) 24 10 - 42 unit/L LAB CHEMISTRY METHOD 2024 4:16 PM [facility] ALT (SGPT) 32 10 - 60 unit/L LAB CHEMISTRY METHOD 2024 4:16 PM [facility] Alkaline Phosphatase 72 42 - 121 unit/L LAB CHEMISTRY METHOD 2024 4:16 PM [facility] Total Protein 7.4 6.0 - 8.0 g/dL LAB CHEMISTRY METHOD 2024 4:16 PM [facility] Albumin 4.3 3.2 - 5.0 g/dL LAB CHEMISTRY METHOD 2024 4:16 PM [facility] Total Bilirubin 0.8 0.0 - 1.4 mg/dL LAB CHEMISTRY METHOD 2024 4:16 PM [facility] Blood Venous blood specimen / Unknown Venipuncture / Unknown 2024 12:47 PM EST 2024 12:47 PM EST Sadie Fontanez MD LAB BLOOD ORDERABLES Final Res ult [facility] [address] [place] [address], * (ABNORMAL) Lipid panel (04/29/2024) LDL/HDL Ratio 2 0 - 4 Triglycerides 141 0 - 150 mg/dL Cholesterol 77 0 - 200 mg/dL HDL 35(A) >=40 mg/dL LDL Cholesterol 14 0 - 100 mg/dL Blood Venous blood specimen / Unknown Historical Provider LAB BLOOD ORDERABLES Tarsha l Result * Diabetes Foot Exam (03/18/2024) Pathologist [facility] Diabetes: Annual Foot Exam Abstracted [facility] Provider MD HEALTH MAINTENANCE Final Result * Diabetes Eye Exam (03/10/2024) Pathologist [facility] Diabetes: Annual Retina Eye Exam Abstracted [facility] Provider HEALTH MAINTENANCE Final Result * Falls Risk Assessment (02/05/2024) [facility] Falls Risk Assessment Abstracted [facility] Provider MD HEALTH MAINTENANCE Final Result * Depression Screening (02/05/2024) Pathologist [facility] Depression Screening Abstracted Result [facility] Provider MD HEALTH MAINTENANCE Final Result * Colonoscopy (11/18/2019) Pathologist [facility] Colonoscopy No Interpretation , Abstracted Anatomical Region Laterality Modality Other [facility] Provider HEALTH MAINTENANCE Final Result from Last 3 Months or Most Recently Relevant to Health Maintenance Insurance [place]ICA[place] - [place] MEDICARE Care Teams Ict Educator Relationship Specialty Start Date End Date Sadie Fontanez MD [address] [place] [phone] PCP - General Internal Medicine 01/30/25
--- OUTSIDE RECORDS SUMMARY | 2025-07-06 10:19 | XMS_ITS ---
Author Name [facility] Organization Unknown Care Team Organization Name Specialty Phone Email Start Date End Da te [facility] Primary [facility] 09/26/2022 07/07/20 24
--- OUTSIDE RECORDS SUMMARY | 2025-07-06 10:19 | XMS_ITS | Clinical Summary ---
Author Organization [facility] Address [address] [place] [address] Care Team Providers Care Silversmith Apprentice Name Role Phone Unavailable Primary Care Provider [...] Fecal DNA 1997 Flexible Sigmoidoscopy 1997 Imm-Pneumococcal 50+ (1 of 1 - PCV) 2002 Imm-Zoster, Recombinant (1 of 2) 2002 Abdominal Aortic Aneurysm Screening 2017 Falls Prevention 2017 [id number] ( season) 07/20/202404/05/ 021, 03/08/2021 Alcohol and Drug Screen 11/19/2024 Depression Annual Screen 11/19/2024 Imm-Influenza (#1) 2025 Insurance [place] Member Subscriber Plan / Payer (Ef fective 2021-Present) Name:Felipe Olivas Relation to Subscriber:Self Name:Felipe Olivas Payer ID:[id number] Type:Medicaid Address: [address] [address] MEDICARE - [place]
== END 2025-07-06 10:55 | disposition home or self-care (01) ==
LOC: HO.HSMS 09:41
PROVIDERS: PCP Internal Medicine; Visit Provider Physician Assistant Medical
DX: G47.33 Obstructive sleep apnea (adult) (pediatric) (principal); R68.2 Dry mouth, unspecified; G25.81 Restless legs syndrome; G47.10 Hypersomnia, unspecified; R68.89 Other general symptoms and signs
CPT/HCPCS: 99214

== ENCOUNTER → 2025-07-06 09:40 | Outpatient (BNVA) | payer MEDICARE, MEDICAID, SELFPAY | PROVIDERS: PCP Internal Medicine; Visit Provider Physician Assistant Medical | DX: G47.33 Obstructive sleep apnea (adult) (pediatric) (principal); G25.81 Restless legs syndrome; R68.2 Dry mouth, unspecified; G47.10 Hypersomnia, unspecified; R68.89 Other general symptoms and signs | CPT/HCPCS: 99212 ==

== ENCOUNTER 2025-10-06 13:26 | Outpatient (AMB) | payer MEDICARE, MEDICAID, SELFPAY ==
--- NOTE | 2025-10-06 14:21 | MHC.OFFVIS ---
Vital Signs 10/06/25 14:22 Height 5 ft 9 in Weight 236 lb 4 oz BMI 34.9 BP 136/70 Blood Pressure Location Rt brachial Position Sitting Pulse 84 Pulse Source Pulse Oximeter Pulse Oximetry (%) 97 Oxygen Delivery Method Room Air Intake Visit Reasons: 3 mo follow up (CONF.) Intake Note: Patient presents follow up ANTHONY. Not Compliant(not using)(Last used:08/04/24-08/17/24). Accompanied by: Self / Same As Patient Allergies No Known Allergies Allergy (Verified 10/06/25 14:25) HPI Comments Details: 74 y/o Kosovan speaking male patient with h/o of stroke and T2DM presents for a follow up of severe ANTHONY. Substance Abuse Therapist on IPAD helps with history taking. HST c/w AHI 30/hr and O2 Nadirs to 79% severe anthony, he is unable to use his cpap at 9cmH20 due to dryness of nose and he was referred to ENT for DISE evaluation, he is not a good candidate per ENT. He has continuous rhinorrhea and nasal congestion with temperature fluctuations, despite trying to be compliant. 03/2025 Split night study and titration in lab AHI 22 and REM AHI is 44, oxygen nadirs to 77%, severe anthony. Patient was started on BIPAP therapy . Patient had a stroke 2 years ago and today we discussed the significance of using his bipap consistently. He says he will try to use the bipap machine as he is having 44 episodes a night during REM and oxygen desaturation to 77% He says his machine's filter is broken, and he does not know where to get the correct pieces for the hose as it is leaking and not working properly due to this broken hose fitting. We discussed getting a new part for his machine with his DME supplier, [facility] and more patient education in Kosovan, he is not sure how to use the Bipap machine as this is difficult for him with regards to settings of pressures and temperatures. He is wearing bilateral hearing aids and needs step by step instructions to teach him how to use the equipment. Pt continues to have frequent gasping arousals, and non refreshing sleep. He has T2DM on 4 medications and continues to have visual disturbances at night when fatigued.He has bilateral hearing aids in and cognitive deficits with word recall, getting lost in conversations, forgetting the days of the week. He has RLS with neuropathy, radiating pain bilaterally in his feet and multiple night time awakenings with chronically being fatigued. Will refer patient to a [facility] health care, [facility] sleep mentor at [facility] for patient education in Kosovan as this is a barrier to care, and he needs support using his new BIPAP machine correctly with regards to pressure settings and temperatures to avoid condensation collection and care of equipment. [facility] Medical History Hypersomnia Snoring Erectile dysfunction Pancreatitis GERD (gastroesophageal reflux disease) HTN (hypertension) Diabetes Arterial ischemic stroke, vertebrobasilar, thalamic, remote, resolved Surgical History Hx of colonoscopy Family History Mother Myocardial infarction Father Diabetes Social History Alcohol intake: never Patient Tobacco Use Status: Never used Tobacco Physical Exam Vital Signs: Last Vital Signs Pulse 84 10/06/25 14:22 BP 136/70 10/06/25 14:22 Pulse Ox 97 10/06/25 14:22 Oxygen Delivery Method Room Air 10/06/25 14:22 BMI result Body Mass Index 34.9 Const General: cooperative, healthy appearing, comfortable and no acute distress Nutritional Appearance: average body habitus Orientation/consciousness: patient oriented x3 Limitations: language barrier and other limitations (Kosovan speaking, hearing aids bilateral) HEENT Head: Yes normal to inspection Eyes Pupils: Equal, round and reactive pupils present Neuro Other: hearing loss, uses hearing aid bilaterally. General: patient oriented x3, gait normal, tone normal, moves all extremities and no focal motor deficits Cranial nerves: Yes Facial sensation intact/muscles of mastication intact, Yes Equal, round and reactive pupils present, Yes Bilaterally intact EOM present, Yes Nystagmus not present, Yes Normal facial strength present, Yes Midline tongue present and Yes Symmetric palate elevation present Cognition (Neuro): normal cognition Gait exam (Neuro): Antalgic gait present and Other gait observations present (mild off balance) Motor exam (neuro): 5/5 motor strength present throughout and Normal motor muscle tone present throughout Coordination: [id number] test normal Psych Appearance: well kempt Results Reviewed Results Reviewed: 03/2025 Split night study and titration in lab AHI 22 and REM AHI is 44, oxygen nadirs to 77%, severe anthony. Patient was started on BIPAP therapy . ENT report DISE evaluation, not a good candidate. Assessment & Plan Assessment & Plan (1) ANTHONY treated with BiPAP: Comment: continue use of bipap Code(s): G47.33 - Obstructive sleep apnea (adult) (pediatric) Category: Medical (2) Dry mouth: Code(s): R68.2 - Dry mouth, unspecified Category: Medical (3) RLS (restless legs syndrome): Code(s): G25.81 - Restless legs syndrome Category: Medical (4) ANTHONY (obstructive sleep apnea): Comment: Severe degree of sleep apnea. The AHI was 30/hr and oxygen yvonne was 79% Code(s): G47.33 - Obstructive sleep apnea (adult) (pediatric) Category: Medical (5) Hypersomnia: Code(s): G47.10 - Hypersomnia, unspecified Category: Medical (6) Forgetfulness: Code(s): R68.89 - Other general symptoms and signs Category: Medical Plan -Severe anthony now trying to use his machine, however he is not sure how to adjust temperatures and continues to lack understanding of how to use his machine. He was titrated and needs a Kosovan speaking mentor to help him use the BIPAP. -He has a h/o stroke and hearing deficits, -[facility] sleep mentor referral rx written for mask fitting and new supplies. -Rhinorrhea due to temperature fluctuations may use fluticasone one spray in each nostril to help ease the congestion. May use zyrtec also for seasonal allergies. Forgetfulness will evaluate with MMSE at next visit, though he has bilateral hearing aids and language barrier. -ENT for DISE procedure notes reviewed, however pt is not a good candidate for surgical implant. -F/U in 3 moths for compliance. Patient Instructions: Sleep Hygiene provided: set a scheduled bedtime and wake time to help regulate the circadian rhythm and balance the release of pituitary hormones. Sleep in a dark room, temperatures below 68 degrees, and no devices n bed. Limit caffeinated products 6 hours prior to bed, and limit fluids 2-4 hours prior to bed. Gentle night yoga, diffusing essential oils, and playing soft music can be relaxing. Call regional health, f/u with a marshallese speaking sleep mentor for better understanding of how to use your bipap machine. Coding Level of Care Code Est Pt Level 4 (54095) Diagnoses ANTHONY treated with BiPAP G47.33 Dry mouth R68.2 RLS (restless legs syndrome) G25.81 ANTHONY (obstructive sleep apnea) G47.33 Hypersomnia G47.10 Forgetfulness R68.89
[2025-10-06 14:22] VITALS: BP 136/70; PULSE 84; O2SAT 97; BMI 34.9
--- OUTSIDE RECORDS SUMMARY | 2025-10-07 06:25 | XMS_ITS | Encounter Summary ---
Author Organization [facility] Address [address] [place] [address] Care Team Providers Care Communications Electrician Supervisor Name Role Phone Sadie Fontanez MD Primary Care Provider [phone] Reason for Visit * Reason Onset Date Comments PRIOR AUTH LANTUS SOLOSTAR INSULIN 09/07/2025 Encounter Details Date Type Department Care Team (Late st Contact Info) Description 09/07/2025 Telephone Endocrinology - [place] [address] [place] [phone] Shari Mccarty MD [address] [place] [address] Social History Tobacco Use Types Packs/Day Years [...] as of this encounter Progress Notes * Danita Roberto MA - 09/07/2025 1:13 PM EDT System was not able to process the request because the previous Prior Authorization Request was Denied. * Danita Roberto MA - 09/07/2025 1:12 PM EDT PA for Lantuss initiated on cmm Dx E11.59 * Clau Lewis - 09/07/2025 9:32 AM EDT Endocrine Call Primary endocrine provider: Dr. Shari Mccarty MD Is the endocrine provider in the office toady?: no Who is calling? [facility] FAX. If not the patient or parent/guardian please check for authorization to share/verbal release. Why is the person calling? Prior authorization. Medications or glucose meter supplies. Please routeto prior authorization pool (p [id number]). Which supply is the concern? PA FOR LANTUS SOLOSTAR 100UNIT/ML YE#[id number] FAX#[phone] documented in this encounter Plan of Treatment Upcoming Encounters Date Type Department Care Team (Late st Contact Info) Description 10/29/2025 2:00 PM EST Consult Vascular Surgery - [place] [address] [facility] [address] [place] [address] Kelly Membreno MD [address] [place] [address] 2025 11:00 AM EST Office Visit Orthopedic Surgery - [place] [address] [facility] [address] [place] [address] Kris Rodriguez, DPM 175 [facility] [address] [place] [address] 11/27/2025 1:15 PM EST Office Visit Internal Medicine - [place] 175 [facility] 200 [place] [phone] Sadie Fontanez MD [address] [place] [phone] 12/23/2025 12:00 PM EST Office Visit Endocrinology - [place] [address] [place] [address] Dora Morris PA [address] [place] [address] documented as of this encounter Visit Diagnoses Not on filedocumented in this encounter Additional Health Concerns Assessment Noted Time PHQ-9 Depression Total Score: 0 03/12/20 12:31 PM EDT A fall risk assessment has been complete d for the patient 03/12/2025 12:27 PM EDT documented as of this encounter Care Teams Communications Electrician Supervisor Relationship Specialty Start Date End Date Sadie Fontanez MD [address] [place] [phone] PCP - General Internal Medicine 01/30/25 documented as of this encounter
--- OUTSIDE RECORDS SUMMARY | 2025-10-07 06:25 | XMS_ITS | Clinical Summary ---
Author Organization [facility] Address [address] [place] [address] Phone Care Team Providers Care Infection Control Manager Name Role Phone Sadie Fontanez MD Primary Care Provider [phone] Allergies Active Allergy Reactions Criticality Noted Date Comments Dulaglutide 05/30/2019 Pancreatitis Medications blood-glucose meter kit Use to test BS 3 times daily. Dx Code E11.59 023 Active ONETOUCH ULTRASOFT LANCETS MISC Use to check BS 4 times a day 022 Active albuterol HFA (PROAIR HFA ; PROVENTIL HFA ; VENTOLIN HFA) 90 mcg/actuation inhaler Inhale 2 Puffs into the lungs every 4 hours as needed for Cough, Wheezing or Shortness of Breath. 023 Active aspirin 81 mg EC tablet Take 1 Tablet by mouth daily. 024 Active diclofenac (VOLTAREN) 1 % topical gel Apply 1 Dose topically 2 times daily. 024 Active magnesium oxide (MAG-OX) 400 mg magnesium tablet Take 1 tablet (400 mg total) by mouth 2 (two) times a day. 180 tablet 2 024 Active blood-glucose sensor (Dexcom G7 Sensor) device Apply topically continuously. Box = Kit = EA 1 each 3 025 Active blood-glucose,re ceiver,cont (Dexcom G7 [facility]isted [facility] Director) misc Apply topically continuously. 1 each 2 025 Active insulin glargine (Lantus Solostar U-100 Insulin) 100 unit/mL (3 mL) injection pen Inject 42 Units under the skin 2 (two) times a day. 15 mL 5 025 Active omeprazole (PriLOSEC) [address] capsule Take 1 capsule by mouth once daily 90 capsule Active pen needle, diabetic (BD Ultra-Fine Short Pen Needle) 31 gauge x 5/16 needle Apply 1 each topically 2 (two) times a day. 100 each 11 Active glucose blood (ScienionTouch Ultra Test) test stripIndications :Type 2 diabetes mellitus with other circulatory complications ([facility] V24, [facility] V28) 1 each by Other route 3 (three) times a day. Use as instructed 300 strip 11 Active sildenafiL (VIAGRA) 100 mg tablet TAKE 1 TABLET BY MOUTH NEEDED FOR ERECTILE DYSFUNCTION 10 tablet Active atorvastatin (LIPITOR) 80 mg tabletIndication s:Type 2 diabetes mellitus with other circulatory complications ([facility] V24, [facility] V28) Take 1 tablet by mouth once daily 90 tablet Active amLODIPine (NORVASC) 10 mg tablet Take 1 tablet by mouth once daily 30 tablet 1 Active magnesium oxide (MAG-OX) 400 mg (241.3 elemental magnesium) tablet Take 1 tablet by mouth once daily 90 tablet Active insulin aspart (NovoLOG FlexPen) 100 unit/mL (3 mL) injection pen INJECT 3 TIMES WITH MEALS PER SCALE: 150-200: 5U, 201-250: 6U, 251-300: 7U, 301-350:8U, 351-400: 9U. Max daily dose 30 units 15 mL 2 Active ezetimibe (ZETIA) 10 mg tabletIndication s:Type 2 diabetes mellitus with other circulatory complications ([facility] V24, [facility] V28) Take 1 tablet by mouth once daily 90 tablet Active metFORMIN (GLUCOPHAGE) 1,000 mg tablet TAKE 1 TABLET BY MOUTH TWICE DAILY WITH MEALS 180 tablet Active insulin aspart (NovoLOG Flexpen U-100 Insulin) 100 unit/mL (3 mL) injection pen Inject 3 times a day with meals per scale: 100-149: 5 units; 150-200: 6 units; 201-250: 7units; 251-300: 8 units; 301-350: 9 units; 351-400: 10 units 024 2024 Discontinued metFORMIN (GLUCOPHAGE) 1,000 mg tablet TAKE 1 TABLET BY MOUTH TWICE DAILY WITH MEALS 180 tablet 1 025 2024 Discontinued magnesium oxide (MAG-OX) 400 mg (241.3 elemental magnesium) tablet Take 1 tablet by mouth once daily 90 tablet 025 2024 Discontinued ezetimibe (ZETIA) 10 mg tabletIndication s:Type 2 diabetes mellitus with other circulatory complications ([facility] V24, [facility] V28) Take 1 tablet by mouth once daily 90 tablet 025 2024 Discontinued NovoLOG Flexpen U-100 Insulin 100 unit/mL (3 mL) injection pen INJECT 3 TIMES WITH MEALS PER SCALE: 150-200: 5U, 201-250: 6U, 251-300: 7U, 301-350:8U, 351-400: 9U 15 mL 025 2024 Discontinued insulin aspart (NovoLOG FlexPen) 100 unit/mL (3 mL) injection pen INJECT 3 TIMES WITH MEALS PER SCALE: 150-200: 5U, 201-250: 6U, 251-300: 7U, 301-350:8U, 351-400: 9U. Max daily dose 30 units 15 mL 11 025 2024 Discontinued(R torey) Active Problems Problem Noted Date Diagnosed Date Abdominal pain 09/16/2024 Change in bowel habits 09/16/2024 Encounter for diagnostic col onoscopy due to change in bowel habits 09/16/2024 Thalamic stroke ([facility] V24, [facility] V28) 04/21 Overview (09/16/2024): Subacute left Ataxia 04/21/2022 Dysuria 04/21/2022 Arterial ischemic stroke, ve rtebrobasilar, thalamic, acute, left ([facility] V24, [facility] V28) 03/06/2022 Pinched nerve in shoulder, left [...] 2 diabetes mellitus wit h vascular disease ([facility] V24, [facility] V28) 03/10/2016 Assessment & Plan (03/12/2025 10:22 PM EDT): Orders: Hemoglobin A1c; Future Magnesium; Future Ambulatory referral to Podiatry; Future Encounters Date Type Department Care Team Description 09/22/2025 11:30 AM EST Office Visit Endocrinology - [address] [phone] Dora Morrsi PA Type 2 diabetes mellitus with vascular disease ([facility] V24, [facility] V28) (Primary Dx); Primary hypertension; Mixed hyperlipidemia 09/17/2025 Telephone Endocrinology [address] [phone] Airam Dejesus PA 09/07/2025 Telephone Endocrinology - [facility] [address] [place] [address] Shari Mccarty MD 08/11/2025 1:00 PM EDT Office Visit Orthopedic Surgery [facility] [address] [facility] [address] [place] [phone] Kris Rodriguez DPM Type 2 diabetes mellitus with vascular disease ([facility] V24, [facility] V28) (Primary Dx); Arthritis of both feet; Achilles tendinitis, right leg; Dermatophytosis, nail 07/23/2025 12:45 PM EDT Office Visit Internal Medicine [facility] [address] [phone] Sadie Fontanez MD Varicose veins of ankle (Primary Dx); Type 2 diabetes mellitus with other circulatory complications ([facility] V24, [facility] V28); Mixed hyperlipidemia; Primary hypertension 07/15/2025 Telephone Endocrinology [address] [phone] Airam Dejesus PA 07/13/2025 3:15 PM EDT Office Visit Internal Medicine [facility] [address] [phone] Sadie Fontanez MD Type 2 diabetes mellitus with vascular disease ([facility] V24, [facility] V28) (Primary Dx); Mixed hyperlipidemia; Primary hypertension; Thalamic stroke ([facility] V24, [facility] V28) 07/13/2025 Telephone Internal Medicine [facility] [address] [phone] Sadie Fontanez MD from Last 3 Months Immunizations Immunization Administration Dates Next Due Moderna SARS-CoV-2 COVID-19, mRNA, LNP-S, preservative free 04/05/2021,03/08/2021 Pneumococcal conjugate 13 va lent (Prevnar 13, PCV13) 2mo and older 10/25/2016 Pneumococcal polysaccharide 23 valent (Pneumovax 23) 2yo and older 02/09/2009 Tetanus Toxoid, Unspecified 07/26/2007 Surgical History Surgery Date Site/Laterality Comments COLONOSCOPY PROCEDURE: HISTORICAL COLONOSCOPY; COMMENT: Performed at age 52 along with an EGD ESOPHAGOGASTRODUODENOSCOPY PROCEDURE: OR EGD TRANSORAL BIOPSY SINGLE/MULTIPLE; COMMENT: Performed with [...] Sign Reading Time Taken Comments Blood Pressure 139/67 09/22/2025 11:15 AM EST Pulse 87 09/22/2025 11:15 AM EST Temperature 36.4 C (97.5 F) 07/23/2025 12:46 PM EDT Respiratory Rate 14 09/22/2025 11:15 AM EST Oxygen Saturation 96% 07/23/2025 12:46 PM EDT Inhaled Oxygen Concentration - - Weight 82.1 kg (181 lb) 09/22/2025 11:15 AM EST Height 175.3 cm (5' 9 ) 09/22/2025 11:15 AM EST Body Mass Index 26.73 09/22/2025 11:15 AM EST Plan of Treatment Upcoming Encounters Date Type Department Care Team (Late st Contact Info) Description 10/29/2025 2:00 PM EST Consult Vascular Surgery - [place] [address] [place] [phone] Kelly Membreno MD [address] [place] [phone] 2025 11:00 AM EST Office Visit Orthopedic Surgery - [place] [address] [facility] [address] [place] [phone] Kris Rodriguez DPM 175 [facility] [address] [place] [address] 11/27/2025 1:15 PM EST Office Visit Internal Medicine - [place] [address] [facility] [address] [place] [phone] Sadie Fontanez MD [address] [place] [phone] 12/23/2025 12:00 PM EST Office Visit Endocrinology - [facility] [address] [place] [phone] Dora Morris PA [address] [place] [address] Health Maintenance Due Date Last Done Comments RSV Immunization Adult Patients (1 - Risk 50-74 years 1-dose series) 2002 Zoster Vaccines (1 of 2) 2002 Pneumococcal Vaccine: 50+ Years (3 of 3 - PCV20 or PCV21) 10/25/2021 10/25/2016, 02/09/2009 Hepatitis C Screening 10/28/2022 Social Influencers of Health Screening 10/28/2022 DTaP,Tdap,and Td Vaccines (2 - Td or Tdap) 03/09/2024 03/09/2014 Diabetes: Annual Retina Eye Exam 03/10/2025 03/10/2024 Diabetes: Annual Foot Exam 03/18/2025 03/18/2024 COVID-19 Vaccine ( season) 2025 04/05/2021, 03/08/2021 Influenza Vaccine (#1) 2025 Diabetes: Annual Urine Albumin-Creatinine Ratio (uACR) 2025 2024, 04/29/2024 Diabetes: Blood Sugar Control Test (HGBA1C) 01/20/2026 07/23/2025, 03/12/2025, 2024, Additional history exists Falls Risk Assessment 03/12/2026 03/12/2025, 024 Medicare Annual Wellness Visit 03/12/2026 03/12/2025 Diabetes: Annual GFR (Glomerular Filtration Rate) 07/23/2026 07/23/2025, 2024, 04/29/2024 Hypertension/CHF/CAD Annual BMP Blood Test 07/23/2026 07/23/2025, 2024, 04/29/2024 Cholesterol Screening (Lipid Panel) 04/29/2029 04/29/2024, 04/29/2024 Colorectal Cancer Screening: Colonoscopy 11/18/2029 11/18/2019 Depression Screening Completed 03/12/2025, 02/05/20 HIB Vaccines Aged Out No longer eligi [...] Procedure Name Priority Date/Time Associated Diagnosis Comments VITAMIN B12 Routine 07/23/2025 1:14 PM EDT Type 2 diabetes mellitus with vascular disease (CMS/HCC V24, CMS/HCC V28) Mixed hyperlipidemia Primary hypertension Thalamic stroke (CMS/HCC V24, CMS/HCC V28) THYROID STIMULATING HORMONE Routine 07/23/2025 1:14 PM EDT Type 2 diabetes mellitus with vascular disease (CMS/HCC V24, CMS/HCC V28) Mixed hyperlipidemia Primary hypertension Thalamic stroke (CMS/HCC V24, CMS/HCC V28) COMPREHENSIVE METABOLIC PANEL Routine 07/23/2025 1:14 PM EDT Type 2 diabetes mellitus with vascular disease (CMS/HCC V24, CMS/HCC V28) Mixed hyperlipidemia Primary hypertension Thalamic stroke (CMS/HCC V24, CMS/HCC V28) HEMOGLOBIN A1C Routine 07/23/2025 1:14 PM EDT Type 2 diabetes mellitus with vascular disease (CMS/HCC V24, CMS/HCC V28) Mixed hyperlipidemia Primary hypertension Thalamic stroke (CMS/HCC V24, CMS/HCC V28) MICROALBUMIN CREATININE URINE RATIO Routine 2024 12:47 PM EST Type 2 diabetes mellitus with vascular disease (CMS/HCC V24, CMS/HCC V28) Primary hypertension Mixed hyperlipidemia Screening for malignant neoplasm of prostate LIPID PANEL Routine 04/29/2024 DIABETES FOOT EXAM Routine 03/18/2024 DIABETES EYE EXAM Routine 03/10/2024 DEPRESSION SCREENING Routine 02/05/2024 FALLS RISK ASSESSMENT Routine 02/05/2024 COLONOSCOPY Routine 11/18/2019 from Last 3 Months or Most Recently Relevant to Health Maintenance Results * Thyroid stimulating hormone (07/23/2025 1:14 PM EDT) Pathologist [facility] TSH 0.84 0.40 - 4.00 mcIU/mL LAB CHEMISTRY METHOD 07/23/2025 7:55 PM EDT [facility] Blood Venous blood specimen / Unknown Venipuncture / Unknown 07/23/2025 1:14 PM EDT 07/23/2025 1:14 PM EDT us Sadie Fontanez MD LAB BLOOD ORDERABLES Final Res ult Performing Organization Address [facility]/ZIP Co de Phone Number [facility] [address] [place] [address], [place] [phone] * (ABNORMAL) Hemoglobin A1c (07/23/2025 1:14 PM EDT) [facility] Hemoglobin A1C 11.4(H) <6.5 % LAB CHEMISTRY METHOD 07/23/2025 9:29 PM EDT [facility] Mean Bld Glu Estim. 280 mg/dL LAB CHEMISTRY METHOD 07/23/2025 9:29 PM EDT [facility] Blood Venous blood specimen / Unknown Venipuncture / Unknown 07/23/2025 1:14 PM EDT 07/23/2025 1:14 PM EDT us Sadie Fontanez MD LAB BLOOD ORDERABLES Final Res ult Performing Organization Address City/[facility]/ZIP Co de Phone Number [facility] [address] [place] [address], [place] [phone] * Vitamin B12 (07/23/2025 1:14 PM EDT) [facility] Vitamin B-12 504 250 - 900 pcg/mL LAB CHEMISTRY METHOD 07/23/2025 9:07 PM EDT [facility] Blood Venous blood specimen / Unknown Venipuncture / Unknown 07/23/2025 1:14 PM EDT 07/23/2025 1:14 PM EDT us Sadie Fontanez MD LAB BLOOD ORDERABLES Final Res ult [facility] [address] [place] [address], * (ABNORMAL) Comprehensive metabolic panel (07/23/2025 1:14 PM EDT) Sodium 135 133 - 145 mmol/L LAB CHEMISTRY METHOD 07/23/2025 8:47 PM EDT [facility] Potassium 4.8 3.5 - 5.5 mmol/L LAB CHEMISTRY METHOD 07/23/2025 8:47 PM [facility] Chloride 98 96 - 110 mmol/L LAB CHEMISTRY METHOD 07/23/2025 8:47 PM [facility] CO2 25 21 - 32 mmol/L LAB CHEMISTRY METHOD 07/23/2025 8:47 PM [facility] Anion Gap 12(H) 3 - 11 LAB CHEMISTRY METHOD 07/23/2025 8:47 PM [facility] Glucose 315(H) 70 - 100 mg/dL LAB CHEMISTRY METHOD 07/23/2025 8:47 PM [facility] BUN 16 5 - 25 mg/dL LAB CHEMISTRY METHOD 07/23/2025 8:47 PM [facility] Creatinine 1.19 0.70 - 1.30 mg/dL LAB CHEMISTRY METHOD 07/23/2025 8:47 PM [facility] eGFR 65 >=60 mL/min/1. 73m2 LAB CHEMISTRY METHOD 07/23/2025 8:47 PM [facility] Comment:Calculation based on the Chronic Kidney Disease Epidemiology Collaboration (CKD-EPI) equation refit without adjustment for race. BUN/Creatinine Ratio 13.4 LAB CHEMISTRY METHOD 07/23/2025 8:47 PM [facility] Calcium 9.5 8.5 - 10.5 mg/dL LAB CHEMISTRY METHOD 07/23/2025 8:47 PM EDT [facility] AST (SGOT) 28 10 - 42 unit/L LAB CHEMISTRY METHOD 07/23/2025 8:47 PM EDT [facility] ALT (SGPT) 43 10 - 60 unit/L LAB CHEMISTRY METHOD 07/23/2025 8:47 PM EDT [facility] Alkaline Phosphatase 66 42 - 121 unit/L LAB CHEMISTRY METHOD 07/23/2025 8:47 PM EDT [facility] Total Protein 7.1 6.0 - 8.0 g/dL LAB CHEMISTRY METHOD 07/23/2025 8:47 PM EDT [facility] Albumin 4.3 3.2 - 5.0 g/dL LAB CHEMISTRY METHOD 07/23/2025 8:47 PM EDT [facility] Total Bilirubin 0.7 0.0 - 1.4 mg/dL LAB CHEMISTRY METHOD 07/23/2025 8:47 PM EDT [facility] Blood Venous blood specimen / Unknown Venipuncture / Unknown 07/23/2025 1:14 PM EDT 07/23/2025 1:14 PM EDT us Sadie Fontanez MD LAB BLOOD ORDERABLES Final Res ult [facility] [address] [place] [address], * (ABNORMAL) Microalbumin creatinine urine ratio (2024 12:47 PM EST) Creatinine, Urine 18.0 mg/dL LAB CHEMISTRY METHOD 2024 3:14 PM EST [facility] Microalb, Ur 5.4 0.0 - 29.0 mg/L LAB CHEMISTRY METHOD 2024 3:14 PM EST [facility] Microalb/Creat Ratio 30(H) <30 mg/g creat LAB CHEMISTRY METHOD 2024 3:14 PM EST [facility] Urine Urine specimen obtained by clean catch procedure / Unknown Non-blood Collection / Unknown 2024 12:47 PM EST 2024 12:47 PM EST Sadie Fontanez MD LAB URINE ORDERABLES Final Res ult [facility] [address] [place] [address], [place] [phone] * (ABNORMAL) Lipid panel (04/29/2024) [facility] LDL/HDL Ratio 2 0 - 4 Triglycerides 141 0 - 150 mg/dL Cholesterol 77 0 - 200 mg/dL HDL 35(A) >=40 mg/dL LDL Cholesterol 14 0 - 100 mg/dL Blood Venous blood specimen / Unknown Result [facility] Provider LAB BLOOD ORDERABLES Tarsha l Result * Diabetes Foot Exam (03/18/2024) [facility] Diabetes: Annual Foot Exam Abstracted Result [facility] Provider HEALTH MAINTENANCE Final Result * Diabetes Eye Exam (03/10/2024) [facility] Diabetes: Annual Retina Eye Exam Abstracted Result [facility] Provider HEALTH MAINTENANCE Final Result * Falls Risk Assessment (02/05/2024) [facility] Falls Risk Assessment Abstracted [facility] Provider HEALTH MAINTENANCE Final Result * Depression Screening (02/05/2024) [facility] Depression Screening Abstracted Result [facility] Provider HEALTH MAINTENANCE Final Result * Colonoscopy (11/18/2019) [facility] Colonoscopy No Interpretation , Abstracted Anatomical Region Laterality Modality Other [facility] Provider HEALTH MAINTENANCE Final Result from Last 3 Months or Most Recently Relevant to Health Maintenance Insurance [place] [facility] Care Teams Infection Control Manager Relationship Specialty Start Date End Date Sadie Fontanez MD [address] [place] [phone] PCP - General Internal Medicine 01/30/25
== END 2025-10-06 15:17 | disposition home or self-care (01) ==
LOC: HO.HSMS 13:27
PROVIDERS: PCP Internal Medicine; Visit Provider Physician Assistant Medical
DX: G47.33 Obstructive sleep apnea (adult) (pediatric) (principal); R68.2 Dry mouth, unspecified; G25.81 Restless legs syndrome; G47.10 Hypersomnia, unspecified; R68.89 Other general symptoms and signs
CPT/HCPCS: 99214

== ENCOUNTER → 2025-10-06 13:26 | Outpatient (BNVA) | payer MEDICARE, MEDICAID, SELFPAY | PROVIDERS: PCP Internal Medicine; Visit Provider Physician Assistant Medical | DX: G47.33 Obstructive sleep apnea (adult) (pediatric) (principal); G47.10 Hypersomnia, unspecified; G25.81 Restless legs syndrome; R68.2 Dry mouth, unspecified; R68.89 Other general symptoms and signs | CPT/HCPCS: 99212 ==